=== PATIENT | female | born 1945 | race Caucasian/White ===

== ENCOUNTER 2016-09-29 10:15 | Emergency (ER) | payer OTHER ==
[~2016-09-29] VITALS: Ht 157.5 cm; Wt 36.3 kg
[2016-09-29] MEDS ORDERED: SODIUM CHLORIDE 0.9% 500 ML IV ONE ×3 (11:15→16:45)
[2016-09-29] MEDS ORDERED: methylPREDNISolone SOD SUCC 125 MG/2 ML VL IV ONE (11:15)
[2016-09-29 11:16] LABS: Hematocrit 47.8 % (36.0-46.0); Hemoglobin 15.7 g/dL (12.2-16.2); Mean Corpuscular Hemoglobin 31.6 pg (28.0-32.0); Mean Corpuscular Hgb Conc. 32.9 g/dL (32.0-36.0); Mean Corpuscular Volume 95.9 fL (80.0-100.0); Mean Platelet Volume 8.8 fL (7.4-10.4); Platelet Count (auto) 310 10^3/uL (140-450); Red Cell Distribution Width 13.5 % (11.6-16.0); SUSPECT VIEW TRANSMISSION; White Blood Cell 24.9 10^3/uL (4.4-10.8)
[2016-09-29 11:25] LABS: Metamyelocytes % 0; Myelocytes % 0; Promyelocytes % 0; Reactive Lymphocytes 0
[2016-09-29 11:31] LABS: INR 1.05 (0.9-1.15); Partial Thromboplastin Time 29.8 sec (22.64-33.71); Prothrombin Time 11.4 sec (9.37-12.3)
[2016-09-29 11:36] LABS: Albumin 2.9 g/dL (3.4-5.0); BUN/Creatinine Ratio 47.9; Bilirubin, Total 0.5 mg/dL (0.2-1.0); Calcium 8.9 mg/dL (8.5-10.1); Magnesium 2.4 mg/dL (1.6-2.6); Potassium 4.1 mmol/L (3.5-5.1); Total Protein 6.4 g/dL (6.4-8.2)
[2016-09-29] MEDS ORDERED: PRIM50TA29 PO (11:49)
[2016-09-29] MEDS ORDERED: ASPI325T47 OR (11:49)
[2016-09-29] MEDS ORDERED: LISI2.5T47 PO (11:49)
[2016-09-29] MEDS ORDERED: TIOT17SP IN (11:49)
[2016-09-29] MEDS ORDERED: ALBU1AER4 IN (11:49)
[2016-09-29] MEDS ORDERED: DILT180C88 PO (11:49)
[2016-09-29] MEDS ORDERED: PRED1PAK10 PO (11:49)
[2016-09-29] MEDS ORDERED: FLUT1SPR5 (11:50)
[2016-09-29] MEDS ORDERED: LOR05T PO (11:50)
[2016-09-29] MEDS ORDERED: MIRT30TA OR (11:50)
[2016-09-29] MEDS ORDERED: MED20T PO (11:50)
[2016-09-29] MEDS ORDERED: MOME100A INH (11:51)
[2016-09-29] MEDS ORDERED: MET50T PO (11:51)
[2016-09-29 11:52] LABS: B-Type Natriuretic Peptide 372.22 pg/mL (0-100); Temperature: 23.5 C (20.0-25.0)
[2016-09-29 11:58] LABS: Platelet Estimate Adequate; RBC Morphology Normal
[2016-09-29] MEDS ORDERED: DILTIAZEM HCL 25 MG/5 ML VIAL IV ONE (12:00)
[2016-09-29] MEDS ORDERED: cefTRIAXone 1GM/50ML D5W 50 ML IV ONE (13:45)
[2016-09-29] MEDS ORDERED: ALBUTEROL SULF 2.5 MG/0.5ML(0.5%) NEB SOLN NEB ONE (15:15)
[2016-09-29] MEDS ORDERED: IPRATROPIUM BROM 0.5 MG/2.5ML INH SOL NEB ONE (15:15)
[2016-09-29 18:50] LABS: Lactic Acid w/Reflex 2.3 mmol/L (0.4-2.0)
[2016-09-29 19:27] LABS: REFLEX LACTIC ACID YES OR NO YES
[2016-09-29] MEDS ORDERED: PIPERACILLIN-TAZOB 3.375GM 100 ML IV ONE (19:30)
[2016-09-29] MEDS ORDERED: ADENOSINE 6 MG/2 ML INJ IV ONE (19:30)
[2016-09-29] MEDS ORDERED: DILTIAZEM 125mg/125ml BAG KIT 125 ML IV ONE (21:30)
[2016-09-29] MEDS ORDERED: DIGOXIN (250MCG/ML) 2 ML AMPULE IV ONE (21:30)
[2016-09-30 01:52] VITALS: BP 114/64
== END 2016-09-30 01:48 | disposition short-term general hospital (02) ==
LOC: EDBD 10:15 → ER 10:21
DX: J44.1 Chronic obstructive pulmonary disease with (acute) exacerbation (principal); I47.1 Supraventricular tachycardia; J18.1 Lobar pneumonia, unspecified organism; E11.9 Type 2 diabetes mellitus without complications
CPT/HCPCS: 36415; 71020; 71250; 80053; 83605; 83735; 83880; 84484; 85007; 85027; 85379; 85610; 85730; 87040; 93005; 94640; 94761; 96361; 96365; 96366; 96367; 96375; 99285; J0153; J0696; J1160; J2543; J2930; J7030

== ENCOUNTER 2018-09-29 15:03 | Emergency (ER) | payer OTHER ==
[~2018-09-29] VITALS: Ht 157.5 cm; Wt 45.4 kg
[~2018-09-29 15:03] MED LIST: ALBU1AER4 IN; ASPI-123 OR; DILT180C88 PO; FLUT1SPR5; LISI2.5T47 PO; LORA-654 PO; MED20T PO; MET50T PO; MIRT30TA OR; MOME100A INH; PRED1PAK10 PO; PRIM50TA29 PO; TIOT17SP IN
[2018-09-29] MEDS ORDERED: methylPREDNISolone SOD SUCC 125 MG/2 ML VL IV ONE (15:15)
[2018-09-29] MEDS ORDERED: IPRATROPIUM BROM 0.5 MG/2.5ML INH SOL NEB ONE (15:15)
[2018-09-29] MEDS ORDERED: ALBUTEROL SULF 2.5 MG/0.5ML(0.5%) NEB SOLN NEB ONE (15:15)
[2018-09-29] MEDS ORDERED: ASPirin 81 mg TAB PO ONE (15:15)
[2018-09-29 15:35] LABS: Basophils # (auto) 0.1 uL; Basophils % (auto) 0.8 % (0.0-2.0); Eosinophils # (auto) 0 uL; Eosinophils % (auto) 0.3 % (0.0-7.0); Hemoglobin 15.2 g/dL (12.2-16.2); Lymphocytes # (auto) 0.7 uL; Mean Corpuscular Hgb Conc. 33.1 g/dL (32.0-36.0); Mean Corpuscular Volume 93.6 fL (80.0-100.0); Monocytes # (auto) 0.4 uL; Monocytes % (auto) 5.4 % (0.0-12.0); Neutrophils # (auto) 6.5 uL; Neutrophils % (auto) 84.5 % (37.0-80.0); Platelet Count (auto) 216 10^3/uL (140-450); Red Blood Cells 4.91 10^6/uL (4.0-5.20); Red Cell Distribution Width 14.2 % (11.8-14.3); White Blood Cell 7.7 10^3/uL (4.4-10.8)
[2018-09-29 15:46] LABS: INR 0.99 (0.9-1.15); Partial Thromboplastin Time 26.7 sec (23.64-32.05); Prothrombin Time 10.7 sec (9.06-12.60)
[2018-09-29 16:05] LABS: Alanine Aminotransferase 15 U/L (13-56); Albumin 3.6 g/dL (3.4-5.0); Aspartate Aminotransferase 11 U/L (15-37); BUN/Creatinine Ratio 41.2; Blood Urea Nitrogen 21 mg/dL (7-18); Calcium 9.3 mg/dL (8.5-10.1); Carbon Dioxide 32 mmol/L (21-32); GFR African American 152 mL/min; GFR Non-African American 126 mL/min; Glucose 92 mg/dL (74-106)
[2018-09-29 16:50] LABS: Anion Gap 5 (5-15); Chloride 102 mmol/L (98-107); Potassium 4.5 mmol/L (3.5-5.1); Sodium 139 mmol/L (136-145)
[2018-09-29 16:51] LABS: Alkaline Phosphatase 132 U/L (45-117); Bilirubin, Total 0.3 mg/dL (0.2-1.0); Total Protein 8.1 g/dL (6.4-8.2)
[2018-09-29 19:46] VITALS: BP 123/58
== END 2018-09-29 20:01 | disposition short-term general hospital (02) ==
LOC: EDBD 15:03 → ER 15:08
DX: J44.1 Chronic obstructive pulmonary disease with (acute) exacerbation (principal); I10 Essential (primary) hypertension
CPT/HCPCS: 36415; 71045; 80053; 83880; 84484; 85025; 85610; 85730; 93005; 94640; 96374; 99285; J2930; J7611; J7644

== ENCOUNTER 2019-02-27 08:33 | Inpatient (IN) | payer OTHER ==
[2019-02-27] VITALS (50 sets, daily range): BP systolic 59–151; BP diastolic 38–76
[~2019-02-27] VITALS: Ht 160 cm; Wt 52.1 kg
[~2019-02-27 08:33] MED LIST changes: -LORA-654 PO; +LORA0.5T12 PO
[2019-02-27] MEDS ORDERED: ETOMIDATE (2MG/ML) 20ML VIAL IV ONE (08:37)
[2019-02-27] MEDS ORDERED: MIDAZOLAM DRIP 50 mg/50mL 50 ML IV ONE ×2 (08:38→13:56)
[2019-02-27] MEDS ORDERED: VANCOMYCIN 1GM/250ML 250 ML IV ONE (08:45)
[2019-02-27] MEDS ORDERED: PIPERACILLIN-TAZOB 3.375GM 100 ML IV ONE (08:45)
[2019-02-27] MEDS ORDERED: SODIUM CHLORIDE 0.9% 3,000 ML IV ONE (08:45)
[2019-02-27] MEDS: NOREPINEPHRINE 8 MG/250ML KIT 250 ML IV SCH ×2 (09:15→18:47)
[2019-02-27] MEDS ORDERED: NOREPINEPHRINE 8 MG/250ML KIT 250 ML IV ONE (09:17)
[2019-02-27 09:21] LABS: Basophils # (auto) 0 uL; Eosinophils # (auto) 0 uL; Lymphocytes # (auto) 0.5 uL; Lymphocytes % (auto) 7.3 % (10.0-50.0); Monocytes # (auto) 0.5 uL; Neutrophils # (auto) 5.3 uL; Nucleated Red Blood Cells % 0.3 %; Platelet Count (auto) 126 10^3/uL (140-450); Red Cell Distribution Width 15.5 % (11.8-14.3)
[2019-02-27 09:23] LABS: Basophils % (auto) 0.3 % (0.0-2.0); Hematocrit 21.5 % (36.0-46.0); Mean Corpuscular Hgb Conc. 30.7 g/dL (32.0-36.0); Mean Corpuscular Volume 104.2 fL (80.0-100.0); Monocytes % (auto) 7.6 % (0.0-12.0); Neutrophils % (auto) 84.8 % (37.0-80.0); Red Blood Cells 2.06 10^6/uL (4.0-5.20); White Blood Cell 6.2 10^3/uL (4.4-10.8)
[2019-02-27 09:33] LABS: Hemoglobin 6.6 g/dL (12.2-16.2)
[2019-02-27 09:38] LABS: INR 2.39 (0.9-1.15); Partial Thromboplastin Time 27.7 sec (23.64-32.05)
[2019-02-27 09:39] LABS: Albumin 2.1 g/dL (3.4-5.0); BUN/Creatinine Ratio 21.4; Calcium 6.1 mg/dL (8.5-10.1); Magnesium 1.7 mg/dL (1.6-2.6); Potassium 4.5 mmol/L (3.5-5.1)
[2019-02-27 09:41] LABS: Urine Bacteria NONE SEEN /hpf (None Seen); Urine Blood 1+ /uL (Negative); Urine Mucus FEW (None Seen); Urine Specific Gravity 1.019 (1.001-1.035); Urine WBC 1952 /hpf (0 - 5); Urine WBC Clumps PRESENT /hpf (None Seen)
[2019-02-27 09:44] LABS: Bilirubin, Total 0.3 mg/dL (0.2-1.0); Total Protein 4.4 g/dL (6.4-8.2)
[2019-02-27] MEDS ORDERED: EPINEPHrine HCL 1 MG/10 ML SYRG IV ONE (10:18)
[2019-02-27] MEDS ORDERED: ATROPINE SULF 1 MG/10ml SYR IV ONE (10:18)
[2019-02-27] MEDS ORDERED: SODIUM BICARBONATE 8.4% INJ 50ML SYRINGE IV ONE (10:18)
[2019-02-27] MEDS ORDERED: phytonadione 5 MG in SODIUM CHL 0.9% 50 ML IV ONE (11:00)
[2019-02-27] MEDS ORDERED: ALBUTEROL SULF 2.5 MG/0.5ML(0.5%) NEB SOLN NEB PRN (11:15)
[2019-02-27] MEDS ORDERED: NITROGLYCERIN 0.4 MG SL TAB SL PRN (11:15)
[2019-02-27] MEDS ORDERED: DEXTROSE (50%) 50ML SYRG IV PRN (11:15)
[2019-02-27] MEDS ORDERED: MORPHINE SULF INJ 2 MG/ML SYRINGE 1ML IV PRN (11:15)
[2019-02-27 11:35] LABS: Hematocrit 38.5 % (36.0-46.0); Hemoglobin 11.9 g/dL (12.2-16.2); Mean Corpuscular Hemoglobin 30.9 pg (28.0-32.0); Mean Corpuscular Hgb Conc. 30.9 g/dL (32.0-36.0); Mean Corpuscular Volume 99.8 fL (80.0-100.0); Platelet Count (auto) 191 10^3/uL (140-450); Red Blood Cells 3.85 10^6/uL (4.0-5.20); Red Cell Distribution Width 15.5 % (11.8-14.3); White Blood Cell 22.1 10^3/uL (4.4-10.8)
[2019-02-27 11:46] LABS: Albumin 2.4 g/dL (3.4-5.0); Calcium 7.3 mg/dL (8.5-10.1)
[2019-02-27 11:49] LABS: BUN/Creatinine Ratio 18.8; Bilirubin, Total 0.7 mg/dL (0.2-1.0); INR 1.59 (0.9-1.15); Total Protein 5.3 g/dL (6.4-8.2)
[2019-02-27] MEDS: InsuLIN REG 1unit/0.01ml Soln (100units/ml) SC SCH ×2 (12:00→18:52)
[2019-02-27] MEDS ORDERED: ALBUTEROL SULF 2.5 MG/0.5ML(0.5%) NEB SOLN NEB SCH (12:00)
[2019-02-27 12:26] LABS: Amphetamine Screen, Urine NEGATIVE (NEGATIVE); Barbiturate Scree,Urine NEGATIVE (NEGATIVE); Benzodiazephine Screen, Urine POSITIVE (NEGATIVE); Cannabinoid Screen, Urine NEGATIVE (NEGATIVE); Cocaine Screen, Urine NEGATIVE (NEGATIVE); Opiate Scree,Urine NEGATIVE (NEGATIVE); Phencyclidine Screen, Urine NEGATIVE (NEGATIVE)
[2019-02-27 12:59] LABS: CRP High Sensitivity 4.59 mg/dL (< 0.3)
--- NOTE | 2019-02-27 13:05 | NUR ---
Admit to ICU from ER on vent TARBELL,RUTHadmitted to ICU via gurney on monitoring manager, intubated and being bagged by Respiratory Therapist. Patient transfered to bed, connected to mechanical ventilator by therapist, KESHAV at bedside. Patient connected to ICU monitoring, weighed by molina, oriented to Shona velásquez RN, unit, ventilator and sedation. NOTE: ASSESSMENT COMPLETED -M SEE PHYSICAL ASSESSMENT SPREAD SHEET.
--- NOTE | 2019-02-27 13:20 | NUR ---
STAT PAGED DR ALFORD REGARDING PT'S HR 160'S AND BP OF 73/43.
[2019-02-27 13:24] LABS: Hematocrit 44.9 % (36.0-46.0); Hemoglobin 13.3 g/dL (12.2-16.2); Mean Corpuscular Hemoglobin 30.7 pg (28.0-32.0); Mean Corpuscular Hgb Conc. 29.7 g/dL (32.0-36.0); Mean Corpuscular Volume 103.6 fL (80.0-100.0); Platelet Count (auto) 185 10^3/uL (140-450); Red Blood Cells 4.33 10^6/uL (4.0-5.20); Red Cell Distribution Width 16.4 % (11.8-14.3); White Blood Cell 24.7 10^3/uL (4.4-10.8)
--- NOTE | 2019-02-27 13:25 | NUR ---
SBP 70'S - LEVOPHED INCREASED- SEE IV SPREAD SHEET. HR REMAINS 150-160'S
[2019-02-27 13:28] LABS: Basophils % (manual) 0 (0.0-2.0); Blast Cells 0; Eosinophils % (manual) 0 (0-7); Metamyelocytes % 0; Myelocytes % 0; Promyelocytes % 0; Reactive Lymphocytes 0
[2019-02-27 13:28] LABS: Basophils % (manual) 0 (0.0-2.0); Blast Cells 0; Eosinophils % (manual) 0 (0-7); Metamyelocytes % 0; Myelocytes % 0; Promyelocytes % 0; Reactive Lymphocytes 0
[2019-02-27 13:37] LABS: INR 1.5 (0.9-1.15); Partial Thromboplastin Time 31.2 sec (23.64-32.05)
--- NOTE | 2019-02-27 13:40 | NUR ---
DR ALFORD RETURNS CALL - INFORMED OF PATIENT'S VITALS AND HEART RHYTHM, PRESENTING INFORMATION AND ASSESSMENT - ORDERS RECEIVED. 12 LEAD EKG DONE AND SENT TO DR ALFORD - STATES NO ADDITIONAL ORDERS AT THIS TIME EXCEPT FOR CURRENT IVF.
[2019-02-27 13:44] LABS: Albumin 2.6 g/dL (3.4-5.0); BUN/Creatinine Ratio 21.5; Calcium 8.2 mg/dL (8.5-10.1); Potassium 5.2 mmol/L (3.5-5.1)
[2019-02-27 13:44] LABS: Band Neutrophils % (manual) 10; Lymphocytes % (manual) 9 (10.0-50.0); Monocytes % (manual) 1 (0-12)
[2019-02-27 13:47] LABS: Band Neutrophils % (manual) 11; Lymphocytes % (manual) 7 (10.0-50.0); Monocytes % (manual) 4 (0-12)
[2019-02-27 13:48] LABS: Bilirubin, Total 0.8 mg/dL (0.2-1.0); Total Protein 5.9 g/dL (6.4-8.2)
[2019-02-27] MEDS: IPRATROPIUM BROM 0.5 MG/2.5ML INH SOL NEB SCH ×2 (14:06→18:40)
--- NOTE | 2019-02-27 14:07 | NUR ---
Respiratory note: MED NEB TX HELD DUE TO TACHYCARDIA WITH HR OF 167. RN AWARE.
--- NOTE | 2019-02-27 14:18 | NUR ---
CALLED DR CONDON'S EXCHANGE AND LEFT A MESSAGE REGARDING PT'S PULMONARY CONSULT AND REQUESTED A STAT CALL BACK.
--- NOTE | 2019-02-27 14:40 | NUR ---
Respiratory note: PT PLACED ON PCV PER DR. CONDON WITH A PC OF 30, PEEP OF 0, I-TIME 1 SECOND, AND 40% FIO2. PT NOTED TO BE BREATHING MORE COMFORTABLY WITH LESS BREATH STACKING. ABG TO BE DRAWN IN ONE HOUR. PARK SIMONS IS AWARE.
[2019-02-27] MEDS: SODIUM CHLORIDE 0.9% 1,000 ML IV SCH ×2 (15:37→21:25)
[2019-02-27] MEDS: MIDAZOLAM DRIP 50 mg/50mL 50 ML IV SCH ×2 (15:41→17:40)
--- NOTE | 2019-02-27 16:00 | NUR ---
DR CONDON VISITS - SPEAKS WITH DR ALFORD RE: PATIENT'S TACHYCARDIA - ORDERS RECEIVED.
--- NOTE | 2019-02-27 16:10 | NUR ---
Respiratory note: ABG HAS BEEN REPORTED TO DR. CONDON AND HE THEN ORDERED THE RR TO BE INCREASED TO 18. NEW VENT SETTINGS: PC OF 30, PEEP 0, I-TIME 1, AND 40% FIO2. ABG TO BE DRAWN IN AM. PARK SIMONS IS AWARE.
[2019-02-27] MEDS ORDERED: methylPREDNISolone SOD SUCC 125 MG/2 ML VL ONE (16:27)
[2019-02-27] MEDS ORDERED: LEVOFLOXACIN 250MG 50 ML IV ONE (16:28)
[2019-02-27] MEDS ORDERED: PIPERACILLIN-TAZOB 2.25GM 50 ML IV ONE (16:28)
[2019-02-27] MEDS: ACCU-CHEK COMFORT CURVE STRIP VI SCH ×2 (16:42→18:39)
[2019-02-27] MEDS ORDERED: FUROSEMIDE 20 MG/2 ML VIAL IV ONE (16:45)
[2019-02-27] MEDS ORDERED: PANTOPRAZOLE 40 MG/10 ML VIAL INJ IV ONE (16:45)
[2019-02-27] MEDS ORDERED: LEVOFLOXACIN 250MG 50 ML IV SCH (17:00)
[2019-02-27] MEDS ORDERED: DILTIAZEM HCL 60 MG TAB GT ONE (17:15)
[2019-02-27 18:04] LABS: Hematocrit 39.5 % (36.0-46.0); Hemoglobin 12.3 g/dL (12.2-16.2)
--- NOTE | 2019-02-27 18:15 | NUR ---
DR LA CONTACTED WITH NEW COAG VALUES - ORDER RECEIVED TO CANCEL VITAMIN K INFUSION.
[2019-02-27] MEDS: LEVALBUTEROL HCL 1.25 MG/3 ML NEB NEB SCH (18:40)
--- NOTE | 2019-02-27 19:07 | NUR ---
TROPONIN LEVEL CALLED TO DR ALFORD - ORDER RECEIVED - SERIAL TROPONIN LEVELS STOPPED
[2019-02-27] MEDS ORDERED: DILT60TA28 PO (20:17)
[2019-02-27] MEDS ORDERED: MED20T PO (20:17)
[2019-02-27] MEDS ORDERED: ATOR20TA PO (20:17)
[2019-02-27] MEDS ORDERED: DABI150C5 PO (20:17)
--- NOTE | 2019-02-27 21:00 | NUR ---
SEDATION VACATION NOT PERFORMED IT IS NOT APPROPRIATE AT THIS TIME; WILL CONT. TO MONITOR.
[2019-02-27] MEDS: DILTIAZEM HCL 60 MG TAB PO SCH (21:05)
[2019-02-27] MEDS: methylPREDNISolone SOD SUCC 125 MG/2 ML VL IV SCH (22:51)
[2019-02-27] MEDS ORDERED: IBUPROFEN 100MG/5ML ORAL SUSP 100 MG/5 ML UD GT PRN (23:00)
[2019-02-28] VITALS (103 sets, daily range): BP systolic 85–151; BP diastolic 35–75
[2019-02-28] MEDS: LEVALBUTEROL HCL 1.25 MG/3 ML NEB NEB SCH ×4 (00:39→18:35)
[2019-02-28] MEDS: IPRATROPIUM BROM 0.5 MG/2.5ML INH SOL NEB SCH ×4 (00:40→18:35)
[2019-02-28] MEDS: ACCU-CHEK COMFORT CURVE STRIP VI SCH ×4 (00:50→18:10)
[2019-02-28] MEDS: PIPERACILLIN-TAZOB 2.25GM 50 ML IV SCH ×4 (00:50→18:27)
[2019-02-28] MEDS: InsuLIN REG 1unit/0.01ml Soln (100units/ml) SC SCH ×4 (00:51→18:00)
[2019-02-28 01:10] LABS: Hematocrit 37.4 % (36.0-46.0); Hemoglobin 11.9 g/dL (12.2-16.2)
[2019-02-28 01:31] LABS: Calcium 6.7 mg/dL (8.5-10.1); Magnesium 1.6 mg/dL (1.6-2.6); Potassium 3.7 mmol/L (3.5-5.1)
[2019-02-28] MEDS ORDERED: MAGNESIUM SULFATE 1GM/100ML 100 ML IV ONE (03:45)
[2019-02-28] MEDS: DILTIAZEM HCL 60 MG TAB PO SCH ×4 (06:50→22:18)
[2019-02-28] MEDS: methylPREDNISolone SOD SUCC 125 MG/2 ML VL IV SCH ×3 (06:50→21:53)
[2019-02-28 07:39] LABS: Basophils # (auto) 0 uL; Eosinophils # (auto) 0 uL; Hematocrit 38.4 % (36.0-46.0); Hemoglobin 12.1 g/dL (12.2-16.2); Lymphocytes # (auto) 0.4 uL; Lymphocytes % (auto) 2.7 % (10.0-50.0); Mean Corpuscular Hemoglobin 30.9 pg (28.0-32.0); Mean Corpuscular Hgb Conc. 31.5 g/dL (32.0-36.0); Mean Corpuscular Volume 98.1 fL (80.0-100.0); Monocytes # (auto) 0.3 uL; Neutrophils # (auto) 15.7 uL; Neutrophils % (auto) 95.3 % (37.0-80.0); Nucleated Red Blood Cells % 0.1 %; Platelet Count (auto) 144 10^3/uL (140-450); Red Blood Cells 3.91 10^6/uL (4.0-5.20); Red Cell Distribution Width 16.1 % (11.8-14.3); White Blood Cell 16.5 10^3/uL (4.4-10.8)
[2019-02-28 07:55] LABS: Albumin 2.5 g/dL (3.4-5.0); BUN/Creatinine Ratio 30.9; Calcium 6.9 mg/dL (8.5-10.1); Potassium 3.7 mmol/L (3.5-5.1)
[2019-02-28 08:03] LABS: Bilirubin, Total 0.5 mg/dL (0.2-1.0); Total Protein 5.4 g/dL (6.4-8.2)
[2019-02-28] MEDS: MIDAZOLAM DRIP 50 mg/50mL 50 ML IV SCH ×3 (08:41→22:32)
--- NOTE | 2019-02-28 08:44 | NUR ---
DR GAO CALLED TO NOTIFY INFORMATION ASSISTANT OF NEW LEFT SIDED PNEUMOTHORAX NOTED ON THIS AM CXR - CALL PLACED TO DR CONDON. RT NOTIFIED.
--- NOTE | 2019-02-28 08:51 | NUR ---
MICROBIOLOGY NOTIFIED LABORER FILTER PLANT OF 2 GRAM POSITIVE BLOOD CULTURES IN CLUSTERS - CALL PLACED TO DR LA.
[2019-02-28] MEDS ORDERED: cefTRIAXone 1GM/50ML D5W 50 ML IV SCH (09:00)
--- NOTE | 2019-02-28 09:00 | NUR ---
SEDATION DECREASED DUE TO VERY HYPOACTIVE COUGH/GAG REFLEX, SLUGGISH PUPIL RESPONSE AND DECREASED WITHDRAWAL TO PAINFUL STIMULI. Addendum: 02/28/19 at 0907 by Shona Juarez RN Amended: Links added.
--- NOTE | 2019-02-28 09:11 | NUR ---
DR CONDON RETURNS CALL - INFORMED OF NEW MOD PNEUMOTHORAX - CALL PLACED TO DR POWER ARMOR RECONNAISSANCE SPECIALIST FOR DR SANABRIA FOR CHEST TUBE PLACEMENT. ALSO INFORMED OF BLOOD CULTURE REPORTS - ORDERS RECEIVED.
[2019-02-28] MEDS ORDERED: VANCOMYCIN PER PHARMACY 0 MG IV SCH (09:15)
--- NOTE | 2019-02-28 09:24 | NUR ---
Respiratory note: CALL PLACED TO TO REPORT CRITICAL ABG RESULTS. VENT CHANGE, RR FROM 18 TO 22, REPEAT ABG TO FOLLOW.
--- NOTE | 2019-02-28 09:25 | NUR ---
DR ALFORD VISITS AND EXAMINES PATIENT - ORDERS RECEIVED.
--- NOTE | 2019-02-28 09:40 | NUR ---
RIGHT THORAVENT CONNECTED TO 20 CM SUCTION - LARGE AIR LEAK NOTED - SAO2 INCREASED TO 98% - RT NOTIFIED - WILL RE-CHECK ABG AND CXR AFTER VENT CHANGES MADE PER DR CONDON'S ORDERS.
[2019-02-28] MEDS ORDERED: FAMOTIDINE (10MG/ML) 2ML VL IV SCH (10:00)
[2019-02-28] MEDS: VANCOMYCIN 750mg/250ml 250 ML IV SCH (10:08)
[2019-02-28] MEDS: PANTOPRAZOLE 40 MG/10 ML VIAL INJ IV SCH (10:08)
[2019-02-28] MEDS ORDERED: DILTIAZEM HCL 60 MG TAB PO SCH (10:15)
--- NOTE | 2019-02-28 10:31 | NUR ---
ANOTHER CALL PLACED TO DR LA.
--- NOTE | 2019-02-28 11:00 | NUR ---
DR LA RETURNS CALL - STATES DR DONAHUE IS PRIMARY HOSPITALIST FOR PATIENT TODAY.
[2019-02-28] MEDS: SODIUM CHLORIDE 0.9% 1,000 ML IV SCH ×3 (11:10→21:53)
--- NOTE | 2019-02-28 14:10 | NUR ---
DR DONAHUE VISITS AND EXAMINES PATIENT, UPDATES FAMILY AT BEDSIDE - ORDERS RECEIVED. DR DONAHUE PHONED DR Dee POWER RE: CHEST TUBE PLACEMENT - STATES WILL COME AND PLACE LEFT CHEST TUBE - ORDERS RECEIVED FOR CXR AT 1530 AND COAGS TO BE DRAWN.
--- NOTE | 2019-02-28 14:30 | NUR ---
DR CONDON VISITS AND EXAMINES PATIENT - ORDERS RECEIVED.
--- NOTE | 2019-02-28 15:03 | NUR ---
CONSULT TO DR GOODRICH CALLED TO IT PROGRAM AUDITOR PER PROTOCOL.
[2019-02-28 15:11] LABS: INR 1.23 (0.9-1.15); Partial Thromboplastin Time 23.9 sec (23.64-32.05)
--- NOTE | 2019-02-28 17:00 | NUR ---
CONTINUE TO AWAIT DR POWER TO PLACE CHEST TUBES.
--- NOTE | 2019-02-28 18:35 | NUR ---
Respiratory note: RECEIVED PT ON VENT V2, VENT CONNECTED TO RED OUTLET AND O2 SOURCE. ALARMS ARE SET AND AUDIBLE. AMBU BAG AND MASK AT BEDSIDE. BS ARE DIMINISHED T/O, NO SX DONE AT THIS TIME, MED NEB TX GIVEN INLINE WITHOUT ADVERSE REACTION NOTED. RT NAME AND PAGER ASSIGNMENT WRITTEN ON PTS ROOM BOARD. PTS FAMILY AT BEDSIDE. PTS CURRENT TEMP IS 99.7F.
--- NOTE | 2019-02-28 18:42 | NUR ---
Respiratory note: PTS DAUGHTER AT BEDSIDE COMMUNICATED SHE IS WAITING ON MD FOR CHEST TUBES, PTS DAUGHTER WOULD LIKE TO BE ASSURED THAT THE PATIENT WILL BE PROPERLY SEDATED AND NUMB. DAUGHTER, IS CONCERNED PT HAS SUFFERED ENOUGH AND DOES NOT WANT HER TO FEEL MORE PAIN THAN NECESSARY.
--- NOTE | 2019-02-28 18:45 | NUR ---
ARTERIAL VASCULAR STUDIES COMPLETED.
[2019-02-28] MEDS: NOREPINEPHRINE 8 MG/250ML KIT 250 ML IV SCH (19:04)
--- NOTE | 2019-02-28 19:30 | NUR ---
Opening Shift Note Assumed care of patient, intubated and sedated, arousal with light to deep pain, pupils brisk and equal. Breathing even and nonlabored, synchronized to ventilator, No S/S of distress/SOB or pain. TLC to right IJ, Tegaderm slightly peeling off, will change d/s later, infusing Versed, Levophed and NS. 20G saline lock to right AC, flushed well. NGT to left nare, belkys 61 cms, connected to LCS, dark greenish bile in the tubing. All extremities cool to touch. Radial pulses normal. Unable to palpate both pedal pulses, both feet were cool, normal pink skin color, will check with Doppler u/s, keep both feet warm. Root's catheter hung to gravity with cloudy and sediments yellowish urine. Bed in low position, call light within reach, fall ans safety precautions in place. No family at bedside at this time, will continue to monitor for changes Q1hr and PRN.
--- NOTE | 2019-02-28 20:13 | NUR ---
Respiratory note: AT BEDSIDE FOR ROUTINE VENT CHECK. NO VENT CHANGES MADE AT THIS TIME CURRENT TEMP IS 100.0F. PARK MCDONALD AT BEDSIDE.
--- NOTE | 2019-02-28 21:00 | NUR ---
Family at bedside. Pt's DTR; Lillian at bedside. Pt's condition and POC updated as well as the plan to place chest drain. Explained to family about procedure and sedation, DTR verbalized understanding and signed the consent for the procedure. All questions and concerns addressed.
--- NOTE | 2019-02-28 21:20 | NUR ---
BLE pulses BLE pulses checked with Doppler u/s with difficulty finding extremities pulses. Both pedal pulses and right posterior Tibial were very weak and irregular, comes and goes, with Doppler u/s, all pulse spots marked. Unable to find left posterior Tibial pulses. Both feet cool to touch, continue keeping warm. Popliteal and femoral pulses weak. 20mins time spent at bedside for finding.
--- NOTE | 2019-02-28 22:10 | NUR ---
Respiratory note: AT BEDSIDE FOR ROUTINE VENT CHECK. TITRATED FIO2 TO 35% VIA VENT AT THIS TIME. PTS CURRENT TEMP IS 99.1F. PARK MCDONALD AT BEDSIDE AND AWARE OF O2 CHANGE.
--- NOTE | 2019-02-28 22:20 | NUR ---
Condition update Increased HR from 120 to 130's and SBP 150's, decreased Levophed slowly, see IV spreadsheet, administered Cardizem as MD order. NGT clamped due to medication given, will re-connect to LCS later. Chest drains in place, noted air leak level 1 on left side almost continuously. Continue care.
--- NOTE | 2019-02-28 23:30 | NUR ---
Condition update/ TLC d/s changed Pt's v/s and condition stable, able to taper down Levophed slowly, see IV spreadsheet and v/s sheet for details. Versed infusing at same rate 11mg/hr. Breathing even and nonlabored, POX high 90's %. Heimlich valves x2 in place, air leak level 1 noted almost all the time on left chest drain. Right chest drain intact, noted same subcutaneous emphysema. Pt grimacing with activities, able to move arms slightly/ weakly. TLC d/s peeled off, d/s changed with sterile technique, noted one stitch intact and one stitch loosen off, bio patch put on the site. Mouth care done. Re-position to prevent pressure ulcer. Continue care.
[2019-03-01] VITALS (91 sets, daily range): BP systolic 82–146; BP diastolic 35–70
[2019-03-01] MEDS: ACCU-CHEK COMFORT CURVE STRIP VI SCH ×4 (00:25→18:00)
[2019-03-01] MEDS: MIDAZOLAM DRIP 50 mg/50mL 50 ML IV SCH ×4 (00:25→17:42)
[2019-03-01] MEDS: PIPERACILLIN-TAZOB 2.25GM 50 ML IV SCH ×4 (00:25→18:15)
[2019-03-01] MEDS: LEVALBUTEROL HCL 1.25 MG/3 ML NEB NEB SCH ×4 (00:45→18:45)
[2019-03-01] MEDS: IPRATROPIUM BROM 0.5 MG/2.5ML INH SOL NEB SCH ×4 (00:45→18:45)
--- NOTE | 2019-03-01 00:45 | NUR ---
Respiratory note: AT BEDSIDE FOR ROUTINE VENT CHECK. TITRATED FIO2 TO 30% VIA VENT AT THIS TIME. CURRENT TEMP IS 99.3F. PARK MCDONALD MADE AWARE OF O2 CHANGE.
[2019-03-01] MEDS: MORPHINE SULFATE 4 MG/ML SYR/VIAL IV PRN (02:07)
--- NOTE | 2019-03-01 02:15 | NUR ---
Condition update BP stable, attempted taper off Levophed, will continue monitor. Pt grimacing and shivering, seemed uncomfortable, temp 98.6 rectally, administered Morphine IV as MD order, keep warm with warm blanket. Feet warmer than earlier, pedal pulses weakly positive with palpation, continue keeping warm at extremities. Respiratory and chest drains stable, air leak level 1. Continue care.
--- NOTE | 2019-03-01 02:24 | NUR ---
Respiratory note: AT BEDSIDE FOR ROUTINE VENT CHECK. HME AND SX CATHETER CHANGED AT THIS TIME. CURRENT TEMP IS 99.0F. NO OTHER CHANGES MADE WILL CONTINUE TO MONITOR.
--- NOTE | 2019-03-01 04:05 | NUR ---
Patient bathe/linen change Patient given complete bath with CHG wipes. Skin integrity assessed for any changes, no new changes, Optifoam intact at sacrum, no open skin. BLE swollen +1. Root's catheter care done. Young rectal cleaned. Z-guard applied to young rectal, and groin areas. Complete linens changed. Patient repositioned for comfort and prevent pressure ulcer. Tolerated fairly due to desaturation to 77% while laying flat and changing linens. Chest drains in place. Continue care.
[2019-03-01 04:24] LABS: Basophils # (auto) 0 uL; Eosinophils # (auto) 0 uL; Hematocrit 32.6 % (36.0-46.0); Hemoglobin 10.7 g/dL (12.2-16.2); Lymphocytes # (auto) 0.2 uL; Lymphocytes % (auto) 1.8 % (10.0-50.0); Mean Corpuscular Hemoglobin 31.3 pg (28.0-32.0); Mean Corpuscular Hgb Conc. 32.9 g/dL (32.0-36.0); Mean Corpuscular Volume 95.1 fL (80.0-100.0); Monocytes # (auto) 0.4 uL; Monocytes % (auto) 3.4 % (0.0-12.0); Neutrophils # (auto) 12.3 uL; Neutrophils % (auto) 94.8 % (37.0-80.0); Nucleated Red Blood Cells % 0.1 %; Platelet Count (auto) 107 10^3/uL (140-450); Red Blood Cells 3.43 10^6/uL (4.0-5.20); Red Cell Distribution Width 15.4 % (11.8-14.3)
[2019-03-01 04:46] LABS: Albumin 2.2 g/dL (3.4-5.0); BUN/Creatinine Ratio 40.4
[2019-03-01 04:48] LABS: Bilirubin, Total 0.5 mg/dL (0.2-1.0); Total Protein 4.6 g/dL (6.4-8.2)
[2019-03-01] MEDS: methylPREDNISolone SOD SUCC 125 MG/2 ML VL IV SCH ×3 (05:41→21:42)
--- NOTE | 2019-03-01 05:52 | NUR ---
Respiratory note: PATIENT FOUND ON .7sec I-TIME; NO ORDER CAN BE FOUND TO SUPPORT THIS SETTING. LAST ORDERED I-TIME IS 1sec PER DR. CONDON. PATIENT RETURNED TO 1sec I-TIME, AT THIS TIME, AND IS TOLERATING SETTING WELL.
[2019-03-01] MEDS: InsuLIN REG 1unit/0.01ml Soln (100units/ml) SC SCH ×4 (06:00→18:00)
--- NOTE | 2019-03-01 06:10 | NUR ---
Respiratory note: RECEIVED PATIENT ON V2 V200 VENT ORALLY INTUBATED WITH AN 8.0 ETT SECURED VIA NINA AT THE 24CM MARKING AT THE LIP, AND MECHANICALLY VENTILATED WITH THE ABOVE CHARTED SETTINGS. SPO2 95%, LUNG SOUNDS ARE DIMINISHED IN ALL LUNG CISNEROS, SCANT AMOUNT OF THIN LIGHT YELLOW SECRETIONS WHEN SUCTIONED. SKIN IS COOL/DRY TO THE TOUCH AND IS INTACT NEAR NINA SITE. THERE IS A NGT IN THE LEFT NARE AND SECURED TO THE NOSE, A TRIPLE LUMEN CENTRAL LINE IS PLACED IN THE RIGHT IJ AND IS PATENT. THERE IS A LARGE AMOUNT OF PALPABLE CREPITUS ON THE RIGHT UPPER CHEST. TWO UreSil THORA-VENTS ARE IN PLACE, ONE LEFT MID-SUBCLAVIAN, AND ONE RIGHT MID-SUBCLAVIAN. THE LEFT HAS CHEST TUBE CONNECTED. THERE IS NON PITTING EDEMA NOTED IN BILATERAL UPPER EXTREMITIES, AND +1 PITTING EDEMA IN THE LOWER EXTREMITIES. AM CXR ASSESSED AND IT SHOWS ETT IN IN SATISFACTORY POSITION SITTING APPROX 3.8CM ABOVE THE AYANNA, NO INDICATION TO ADJUST TUBE AT THIS TIME. PATIENT IS UNRESPONSIVE TO BOTH VERBAL/TACTILE STIMULI AND IS SEDATED ON A VERSED DRIP. SHE IS RESTING COMFORTABLY AND TOLERATING VENT WELL, NO CHANGES MADE. VENT PLUGGED INTO RED OUTLET AND ALL ALARMS ARE SET AND AUDIBLE. WILL CONTINUE TO ASSESS PATIENT WELL VENTILATOR FUNCTION. [employer] RUN INLINE.
[2019-03-01] MEDS: DILTIAZEM HCL 60 MG TAB PO SCH (06:40)
[2019-03-01] MEDS: SODIUM CHLORIDE 0.9% 1,000 ML IV SCH (06:40)
--- NOTE | 2019-03-01 07:15 | NUR ---
OPENING NOTE SHIFT REPORT RECEIVED AND ASSUMED CARE OF PT FROM TAMARA NICK
--- NOTE | 2019-03-01 07:30 | NUR ---
DR. ALFORD AT BEDSIDE ORDERS RECEIVED
--- NOTE | 2019-03-01 07:40 | NUR ---
DR. DONAHUE AT BEDSIDE ORDERS RECEIVED
--- NOTE | 2019-03-01 08:00 | NUR ---
COOLING MEASURES INITIATED FOR TEMP
[2019-03-01] MEDS ORDERED: FUROSEMIDE 20 MG/2 ML VIAL ONE (08:42)
[2019-03-01] MEDS ORDERED: METOPROLOL TARTRATE 1MG/1ML-5ML VIAL IV ONE (08:43)
[2019-03-01] MEDS: FUROSEMIDE 20 MG/2 ML VIAL IV SCH ×2 (09:12→18:10)
[2019-03-01] MEDS: POTASSIUM CHL 20MEQ/100ML 100 ML IV SCH ×2 (09:25→11:02)
[2019-03-01] MEDS ORDERED: METOPROLOL TARTRATE 1MG/1ML-5ML VIAL IV SCH ×2 (10:00→16:00)
--- NOTE | 2019-03-01 10:00 | NUR ---
CHEST TUBE PLACED TO RIGHT CHEST BY DR. HASSAN AT BEDSIDE. PT TOLERATED WELL. WILL CONTINUE TO MONITOR
--- NOTE | 2019-03-01 10:15 | NUR ---
Respiratory note: VENT MODE CHANGED TO AC-VCV WITH THE FOLLOWING SETTINGS, PER DR. PARSONS'S BEDSIDE VERBAL ORDER: AC14, 470, +8 RN JATINDER AT BEDSIDE AND AWARE OF CHANGE.
[2019-03-01] MEDS: PANTOPRAZOLE 40 MG/10 ML VIAL INJ IV SCH (10:32)
[2019-03-01] MEDS: VANCOMYCIN 750mg/250ml 250 ML IV SCH (10:33)
[2019-03-01] MEDS: fentaNYL Drip 2500mCg/250mlNS 250 ML IV SCH (11:02)
--- NOTE | 2019-03-01 11:09 | NUR ---
NUTRITION CONSULT/ASSESSMENT NOTES Please refer to link notes of nutrition screen form filed under the intervention section of the plan of care for further details. Est. Needs: 1700 kcal to 1950 kcal (25-30 kcal/kgBW), 56 gms to 73 gms pro (1.0-1.3 gms/kgBW d/t severe hypoalbuminemia). Will continue to monitor pertinent labs and reassess nutrient need prn Thank you for this consult. Addendum: 03/01/19 at [address] Amended: Links added.
--- NOTE | 2019-03-01 11:15 | NUR ---
[facility] C[facility] PHYSICAL THERAPIST CALLED UPDATED ON PT STATUS. STATES WILL CALL BACK TOMORROW
--- NOTE | 2019-03-01 12:12 | NUR ---
1145 03/01/19 Contacted government relations analyst Josesito at [place] and requested authorization to be provided for patient's continued stay. Per Josesito the assigned family caseworker Kayleen has to review today's clinical information (per Josesito they did receive faxed clinical information today) with the MD before she can give authorization. I faxed Dr. Jose Alejandro Adler's MD progress notes from today 03/01 stating patient is not stable for transfer. I requested that Josesito have Health Safety Instructor Kayleen call me regarding authorization status.
[2019-03-01] MEDS ORDERED: AMIODARONE HCL 150 MG in D5W 5% 100 ML IV ONE (12:30)
[2019-03-01] MEDS ORDERED: DIGOXIN (250MCG/ML) 2 ML AMPULE IV ONE (12:30)
[2019-03-01] MEDS ORDERED: AMIODARONE HCL (50 MG/ ML) 3 ML VIAL IV ONE (12:33)
[2019-03-01] MEDS ORDERED: DIGOXIN (250MCG/ML) 2 ML AMPULE ONE (12:33)
--- NOTE | 2019-03-01 13:00 | NUR ---
DR. HASSAN AT BEDSIDE AWARE OF AIR LEAKAGE. STATES OK WITH MINIMAL LEAKAGE. WILL REPOSITION AND RE-ENFORCE DRESSING
--- NOTE | 2019-03-01 14:00 | NUR ---
DR. GR AT [facility] STATES WILL RE-CHECK LABS IN AM. NO OTHER PLANS AT THIS TIME
--- NOTE | 2019-03-01 14:51 | NUR ---
Assessment Pt is a 74 yr old female who is intubated. Pt's daughter Katerine was bedside and is pt's POA and emergency contact at [phone]. Prior to admit, pt lives at home with , granddaughter and her , and their kids. Pt was found unresponsive in her bed, and has a history with COPD and Sepsis so family member. Pt's granddaughter Natalie is the pt's caregiver in the home. Prior to admit, pt was non-ambulatory and uses a w/c, shower chair, and commode. A paid caregiver comes in weekly to do exercises and bathing with pt. Pt receives SS and pension income. Pt's daughter stated that pt might need a hospital bed and HH services upon d/c. Further d/c needs will be further assessed upon d/c. Addendum: 03/01/19 at 1502 by DAVON DELANEY Amended: Links added.
--- NOTE | 2019-03-01 15:45 | NUR ---
WOUND CARE NOTE: Wound care consult received from nursing for intubation and low ajay score. Patient is an 74 yo female admitted for acute respiratory failure and bilateral pneumothorax, severe anemia, non stemi, UTI and coagulopathy. Patient with a history of COPD, HTN, CVA, diabetes, atherosclerotic vascular disease, and right hip surgery. Patient seen with bedside RNKaterine. Patient is currently intubated and sedated. Last Ajay score is 12. Patient currently with bilateral chest tubes. Turned and assessed skin with assistance of PARK Garcias. No wounds noted to sacrum. Bilateral heels red, blanching and intact and off loaded with pillows. RECOMMENDATIONS: Dietary consult; Turn q2hrs; Nursing to cleanse buttocks with mild soap and water, pat dry, apply ZGUARD BID/PRN and cover with OPTIFOAM GENTLE; wound care team to follow while intubated and Ajay is <18.
[2019-03-01] MEDS ORDERED: Jevity 1.2 Cal/Fiber 1 Liter GT SCH (17:00)
--- NOTE | 2019-03-01 19:25 | NUR ---
CLOSING NOTE SHIFT REPORT GIVEN AND CARE ENDORSED TO SANYA NICK
--- NOTE | 2019-03-01 19:30 | NUR ---
Opening Shift Note Received pt on mechanical ventilator, sedated on versed and fentanyl. Pt has facial grimacing to oral care. Sinus tachycardia 110 on bed side monitor. Full assessment done, see interventions. Chest tube in right lateral side with air leak noted in atrium draining minimal serosanguineous fluid. Per report, MD aware. Heimlich valve in place to left upper chest draining serosanguineous fluid. All pulses palpated. Weak to lower extremities but palpable. Skin assessment done, see interventions. Right IJ TLC in place, all ports patent, with good blood return. Site benign. Root catheter draining to gravity, free of kinks and patent. Bed locked in lowest position, all alarms on and audible. Pt in full view of RN. No indications of pain observed.
--- NOTE | 2019-03-01 20:30 | NUR ---
Family at bedside visiting patient. All questions and concerns addressed at this time.
--- NOTE | 2019-03-01 21:00 | NUR ---
Tube feeding started at 15 cc's/hr. Positive NGT placement checked via air auscultation and aspiration. Will recheck residuals.
[2019-03-01] MEDS: METOPROLOL TARTRATE 1MG/1ML-5ML VIAL IV SCH (21:42)
[2019-03-02] VITALS (98 sets, daily range): BP systolic 67–196; BP diastolic 31–86
--- NOTE | 2019-03-02 | NUR ---
TF held at this time due to high residuals greater than 50cc's.
[2019-03-02] MEDS: PIPERACILLIN-TAZOB 2.25GM 50 ML IV SCH ×2 (00:23→05:32)
[2019-03-02] MEDS: ACCU-CHEK COMFORT CURVE STRIP VI SCH ×4 (00:24→18:00)
[2019-03-02] MEDS: LEVALBUTEROL HCL 1.25 MG/3 ML NEB NEB SCH ×4 (00:29→18:46)
[2019-03-02] MEDS: IPRATROPIUM BROM 0.5 MG/2.5ML INH SOL NEB SCH ×4 (00:29→18:46)
[2019-03-02 04:01] LABS: Albumin 2.3 g/dL (3.4-5.0); Calcium 7.4 mg/dL (8.5-10.1)
[2019-03-02 04:05] LABS: Basophils # (auto) 0 uL; Bilirubin, Total 0.9 mg/dL (0.2-1.0); Eosinophils # (auto) 0 uL; Hematocrit 33.3 % (36.0-46.0); Lymphocytes # (auto) 0.1 uL; Lymphocytes % (auto) 1.1 % (10.0-50.0); Mean Corpuscular Hemoglobin 31.3 pg (28.0-32.0); Mean Corpuscular Volume 94.9 fL (80.0-100.0); Monocytes # (auto) 0.6 uL; Monocytes % (auto) 4.5 % (0.0-12.0); Neutrophils # (auto) 12.7 uL; Neutrophils % (auto) 94.4 % (37.0-80.0); Nucleated Red Blood Cells % 0.1 %; Platelet Count (auto) 104 10^3/uL (140-450); Red Blood Cells 3.51 10^6/uL (4.0-5.20); Red Cell Distribution Width 15.5 % (11.8-14.3); White Blood Cell 13.5 10^3/uL (4.4-10.8)
[2019-03-02 04:33] LABS: Potassium 2.5 mmol/L (3.5-5.1)
--- NOTE | 2019-03-02 04:40 | NUR ---
Paged hospitalist for critical lab value. Awaiting return call.
--- NOTE | 2019-03-02 05:02 | NUR ---
New orders received from hospitalist for 40 meq potassium IV for potassium level of 2.5. Will carry out through emar.
[2019-03-02] MEDS: methylPREDNISolone SOD SUCC 125 MG/2 ML VL IV SCH ×3 (05:32→22:19)
[2019-03-02] MEDS: InsuLIN REG 1unit/0.01ml Soln (100units/ml) SC SCH ×4 (05:40→18:00)
[2019-03-02] MEDS: POTASSIUM CHL 20MEQ/100ML 100 ML IV SCH ×3 (05:41→21:23)
[2019-03-02] MEDS: METOPROLOL TARTRATE 1MG/1ML-5ML VIAL IV SCH ×4 (06:00→18:00)
[2019-03-02] MEDS: FUROSEMIDE 20 MG/2 ML VIAL IV SCH ×2 (06:00→20:34)
--- NOTE | 2019-03-02 06:30 | NUR ---
Partial linen change, CHG wipe bath given and skin integrity assessed for any changes. Pt tolerated well. Crepitus still palpated in upper chest and down right side of arm. Air leak seen in chest tubes. Will inform .
--- NOTE | 2019-03-02 07:25 | NUR ---
End of shift note Report given to Diann NICK to assume care.
--- NOTE | 2019-03-02 07:30 | NUR ---
REPORT RECEIVED FROM NIGHT RNSANYA. BEDSIDE CHECK DONE. SBP 60'S AND SO TURNED OFF VERSED AND FENTANYL FROM 100 TO 50. CONTINUE TO MONITOR.
--- NOTE | 2019-03-02 07:58 | NUR ---
ASSESSMENT PT LAYING IN BED , SEDATED WHILE ON THE VENTILATOR. NO SPONTANEOUS MOVEMENT NOTED. VENT SETTINGS: 8 FR ETT/24 AT THE LIP, TV 470, AC 14, 30% AND PEEP OF 5. LUNGS CLEAR AND DIMINISHED THROUGHOUT. O2 SAT OF 98%. TELE ST 127. SCDS TO BLE. ABD SOFT WITH NO BOWEL SOUNDS NOTED. NGT TO LEFT NARES WITH FEEDING OFF AND RESIDUAL OF 40 ML BILE FLUID NOTED. UNKNOWN LAST BM. KING CATHETER DRAINING PALE CLEAR YELLOW URINE. PT TURNED TO HER RIGHT SIDE. OPTIFOAM TO SACRUM WITH SMALL SCRATCH NOTED TO RIGHT BUTTOCK. PT WITH CHEST TUBE ON THE RIGHT CHEST, TO PLEURAVAC AND TO 20 CM SUCTION, DRAINING SEROSANGUINOUS FLUID. LEFT CHEST HEIMLICH VALVE IN PLACE WITH PLEURAVAC IN PLACE TO 20 CM SUCTION, DRAINING SEROSANGUINOUS FLUID. AIR LEAK NOTED ON BOTH CHEST TUBES AND PER REPORT, MD AWARE. CREPITUS NOTED TO RIGHT LAND LEFT UPPER CHEST TO NECK AND ON UPPER RIGHT ARM. RAILS UP X4 AND BED IN LOW POSITION FOR PT SAFETY AND CONTINUE TO MONITOR.
--- NOTE | 2019-03-02 09:00 | NUR ---
HOLD ING ON SEDATION VACATION OAS PT'S HR AND BP VERY UNSTABLE Addendum: 03/02/19 at 2002 by Diann Johnson RN Amended: Links added.
--- NOTE | 2019-03-02 09:05 | NUR ---
NO BP READING ON BOTH ARMS. TURNED FENTANYL OFF AND LEVOPHED FROM 10 TO 15.
--- NOTE | 2019-03-02 09:09 | NUR ---
Respiratory note: LM FOR DR PARSONS TO RETURN CALL FOR CRITICAL ABG VALUES. RN MADE AWARE.
[2019-03-02] MEDS: PHENYLEPHRINE INJ 20 MG in D5W 5% 250 ML IV SCH ×2 (09:15→17:35)
[2019-03-02] MEDS ORDERED: PHENYLEPHRINE IV 250 ML IV ONE (09:17)
--- NOTE | 2019-03-02 09:26 | NUR ---
OBTAINED ORDER FOR NEOSYNEPHRINE FROM DR Jose Alejandro DONAHUE, IN CASE ELEVATED HR RELATED TO HIGHER DOSE OF LEVOPHED. BP X4 SINCE 911, SBP IS 180-200 . TITRATING DOWN ON LEVOPHED. BP OF 181/72 AND LEVOPHED DOWN FROM 13 TO 10. VS: 127-14-100% AND 181/72. CONTINUE TO MONITOR.
--- NOTE | 2019-03-02 09:40 | NUR ---
VS: 125-14-99% AND 175/70. DECREASED LEVOPHED FROM 10 TO 8 MCG AND CONTINUE TO MONITOR.
[2019-03-02] MEDS: PANTOPRAZOLE 40 MG/10 ML VIAL INJ IV SCH (09:50)
[2019-03-02] MEDS: VANCOMYCIN 750mg/250ml 250 ML IV SCH (09:50)
--- NOTE | 2019-03-02 09:56 | NUR ---
0945 03/02/19 Contacted marketing campaign analyst Erika at [facility] and requested authorization to be provided for patient's continued stay. Per Erika the assigned case finishing machine adjuster today is Kandice-she will have to review clinical information before she can provide further authorization. I made Erika aware that patient is not stable for transfer to [facility] today per attending physician Dr. Jose Alejandro Adler-faxed progress notes for 03/02 to [facility] at [phone]. I requested that Erika have Axminster Weaver Kandice call me regarding further authorization.
--- NOTE | 2019-03-02 10:35 | NUR ---
VS: 116-14-98%AND 180/86. TURNED LEVOPHED FROM 9 TO 8 MCG. CONTINUE TO MONITOR.
--- NOTE | 2019-03-02 10:40 | NUR ---
Respiratory note: DR JOHN GAVE ORDER OVER TELEPHONE TO DECREASE PT RESPIRATORY RATE FROM 14, TO 10. CHANGES WERE MADE. AT 10:45 PT VT STARTED TO DECREASE TO 180. PARK COLINDRES NOTIFIED ME OF PT DECREASE IN VT. RR WAS INCREASED BACK TO 14. PARK COLINDRES LM FOR DR JOHN INFORMING HIM OF PT STATUS, AND THAT THE RR WAS INCREASE BACK TO 14 DUE TO LOW VT.
--- NOTE | 2019-03-02 11:46 | NUR ---
TITRATING DOWN SLOWLY ON THE LEVOPHED PT VERY SENSITIVE. CONTINUE TO MONITOR.
[2019-03-02] MEDS: fentaNYL Drip 2500mCg/250mlNS 250 ML IV SCH (12:12)
[2019-03-02] MEDS: NOREPINEPHRINE 8 MG/250ML KIT 250 ML IV SCH (12:12)
[2019-03-02] MEDS: PIPERACILLIN-TAZOB 3.375GM 100 ML IV SCH ×2 (12:13→20:34)
--- NOTE | 2019-03-02 13:04 | NUR ---
PT SEEN BY DR GOODRICH. HE SPOKE WITH THE PT'S SON AND WHO WERE AT THE BEDSIDE. BP OF154/62 AND HR 114. DECREASED LEVOPHED TO 3 MCG. CONTINUE TO MONITOR VS.
--- NOTE | 2019-03-02 13:26 | NUR ---
BP OF 138/56 AND TURNED LEVOPHED FROM 3MCG TO 2 MCG. CONTINUE TO MONITOR,
--- NOTE | 2019-03-02 16:30 | NUR ---
MD VISIT PT SEEN AND EXAMINED BY DR PARSONS. UPDATED HIM ON THE PT'S CURRENT CONDITION. JEAN-PAUL RT, TO THE BEDSIDE. PER MD ORDER , DECREASED TV TO 420 AND RATE TO 10. PT WITH TV 410-420'S AND O2 SAT OF F95%. CONTINUE TO MONITOR. HE REQUESTS TO TURN OFF ALL SEDATION IN AM FOR SEDATION VACATION AND ASSESS NEURO STATUS UNLESS PT STARTS STACKING BREATHS AND/OR DESATURATING.
--- NOTE | 2019-03-02 16:40 | NUR ---
Respiratory note: VENT CHANGES ORDERED PER DR. PARSONS. VT CHANGED FROM 470 TO 420, AND RR FROM 14 TO 10. ABG ORDERED FOR TOMORROW 03/03/19 AT 0600.
--- NOTE | 2019-03-02 19:35 | NUR ---
ASSESSMENT PT LAYING IN BED , SEDATED WHILE ORALLY INTUBATED. NO SPONTANEOUS MOVEMENT NOTED. PT CONNECTED TO ICU MONITORS. LUNGS CLEAR AND DIMINISHED THROUGHOUT. O2 SAT OF 98%. ST 127. SCDS TO BLE LOWER EXTREMITIES. NGT TO L NARES. FEEDING OFF AND RESIDUAL OF 80 ML BILE FLUID. UNKNOWN LAST BM. KING HANGING BELOW BLADDER, PATENT DRAINING PALE CLEAR YELLOW URINE TO GRAVITY. OPTIFOAM TO SACRUM IN PLACE COVERING SMALL SCRATCH TO RIGHT BUTTOCK. PT HAS CHEST TUBE IN THE RIGHT CHEST, TO PLEURAVAC AND TO 20 CM SUCTION, DRAINING MINIMAL AMOUNT OF SEROSANGUINOUS FLUID. LEFT CHEST HEIMLICH VALVE IN PLACE. AIR LEAK NOTED ON CHEST TUBE AND PER REPORT, MD AWARE. CREPITUS NOTED TO RIGHT AND LEFT UPPER CHEST TO NECK AND ON UPPER RIGHT ARM. RAILS UP X4 AND BED IN LOW POSITION, WHEELS LOCKED. PT IS IN FULL VIEW OF RN STATION. NO SS OF DISTRESS NOTED AT THIS TIME. WILL CONTINUE TO CARE FOR AND MONITOR.
--- NOTE | 2019-03-02 19:59 | NUR ---
REPORT BEDSIDE REPORT GIVEN TO NIGHT RNKARYN.
--- NOTE | 2019-03-02 23:00 | NUR ---
TITRATING DOWN LEVO TITRATING DOWN SLOWLY ON THE LEVOPHED PT VERY SENSITIVE. CONTINUE TO MONITOR.
--- NOTE | 2019-03-02 23:15 | NUR ---
pt daughter is at bedside pts daughter informed of pts current vs and status, all questions and concerns addressed at this time.
[2019-03-03] VITALS (103 sets, daily range): BP systolic 75–180; BP diastolic 36–123
[2019-03-03] MEDS: ACCU-CHEK COMFORT CURVE STRIP VI SCH ×4 (00:17→18:18)
[2019-03-03] MEDS: PIPERACILLIN-TAZOB 3.375GM 100 ML IV SCH ×4 (00:17→18:18)
[2019-03-03] MEDS: LEVALBUTEROL HCL 1.25 MG/3 ML NEB NEB SCH ×4 (00:34→19:07)
[2019-03-03] MEDS: IPRATROPIUM BROM 0.5 MG/2.5ML INH SOL NEB SCH ×4 (00:34→19:07)
--- NOTE | 2019-03-03 01:20 | NUR ---
pt vs are stable pt remains intubated and sedated. safety measures are in place. will continue to monitor pt
[2019-03-03] MEDS: PHENYLEPHRINE INJ 20 MG in D5W 5% 250 ML IV SCH ×3 (01:55→18:19)
--- NOTE | 2019-03-03 03:25 | NUR ---
hygiene partial bed bath and linen change provided. pt tolerated care. vs remain stable. will continue to care for and monitor
[2019-03-03 04:22] LABS: Basophils # (auto) 0 uL; Eosinophils # (auto) 0 uL; Hematocrit 36.7 % (36.0-46.0); Hemoglobin 12.1 g/dL (12.2-16.2); Lymphocytes # (auto) 0.2 uL; Lymphocytes % (auto) 1.3 % (10.0-50.0); Mean Corpuscular Hgb Conc. 32.9 g/dL (32.0-36.0); Mean Corpuscular Volume 94.2 fL (80.0-100.0); Monocytes # (auto) 0.7 uL; Monocytes % (auto) 4.3 % (0.0-12.0); Neutrophils # (auto) 14.8 uL; Neutrophils % (auto) 94.4 % (37.0-80.0); Platelet Count (auto) 118 10^3/uL (140-450); Red Cell Distribution Width 15.9 % (11.8-14.3); White Blood Cell 15.7 10^3/uL (4.4-10.8)
[2019-03-03 04:43] LABS: Albumin 2.5 g/dL (3.4-5.0); Potassium 3.3 mmol/L (3.5-5.1)
--- NOTE | 2019-03-03 04:45 | NUR ---
family at bedside
--- NOTE | 2019-03-03 04:45 | NUR ---
pt son is at bedside pts son informed of pts current vs and status, all questions and concerns addressed at this time.
[2019-03-03 04:47] LABS: BUN/Creatinine Ratio 43.6; Bilirubin, Total 1.1 mg/dL (0.2-1.0); Total Protein 5.4 g/dL (6.4-8.2)
--- NOTE | 2019-03-03 05:15 | NUR ---
LEVO SHUT OFF PT VS ARE STABLE. BP 117/62 WITHOUT LEVO. WILL CONTINUE TO MONITOR
[2019-03-03] MEDS: METOPROLOL TARTRATE 1MG/1ML-5ML VIAL IV SCH ×4 (06:00→18:00)
[2019-03-03] MEDS: InsuLIN REG 1unit/0.01ml Soln (100units/ml) SC SCH ×4 (06:00→18:00)
[2019-03-03] MEDS: methylPREDNISolone SOD SUCC 125 MG/2 ML VL IV SCH (06:32)
[2019-03-03] MEDS: FUROSEMIDE 20 MG/2 ML VIAL IV SCH (06:32)
[2019-03-03] MEDS: NOREPINEPHRINE 8 MG/250ML KIT 250 ML IV SCH (09:15)
--- NOTE | 2019-03-03 10:08 | NUR ---
1000 03/03/19 Contacted leann Randall at [facility] and requested authorization be provided for patient's continued stay. Per Tonia, assigned Conservation Planner Kandice has to review today's clinical information (which Tonia confirmed was received) before a decision can be made. I requested that Tonia have Conservation Planner Kandice give me a call-provided her with my contact information. I faxed over Dr. Jose Alejandro Adler's progress notes for today stating patient is not stable for transfer-I relayed this information to leann Randall.
--- NOTE | 2019-03-03 10:30 | NUR ---
PT TURNED FOR COMFORT TO HER RIGHT SIDE. VSS. WITH EYES OPEN BUT NOT FOLLOWING ANY COMMANDS. TURNED OFF FENTANYL. CONTINUE TO MONITOR.
[2019-03-03] MEDS: fentaNYL Drip 2500mCg/250mlNS 250 ML IV SCH (10:42)
[2019-03-03] MEDS ORDERED: VANCOMYCIN 750mg/250ml 250 ML IV SCH ×2 (11:00→12:30)
--- NOTE | 2019-03-03 11:08 | NUR ---
BP OF 63/30 AND RECYCLED AT 74/32. WILL INCREASE LEVOPHED FROM 0.25 TO 0.5 MCG. AND CONTINUE TO MONITOR.
[2019-03-03] MEDS: PANTOPRAZOLE 40 MG/10 ML VIAL INJ IV SCH (11:11)
[2019-03-03] MEDS: POTASSIUM CHL 20MEQ/100ML 100 ML IV SCH (11:12)
[2019-03-03] MEDS ORDERED: SODIUM CHLORIDE 0.9% 500 ML IV ONE (12:00)
[2019-03-03] MEDS ORDERED: VANCOMYCIN PER PHARMACY 0 MG IV SCH (12:30)
[2019-03-03] MEDS: MIDAZOLAM DRIP 50 mg/50mL 50 ML IV SCH (13:00)
[2019-03-03] MEDS ORDERED: DAPTOmycin 300 MG in SODIUM CHL 0.9% 50 ML IV ONE (14:00)
--- NOTE | 2019-03-03 14:33 | NUR ---
Nutrition Follow-up Notes Wt.: 55.3 kg Pt`s intubated sedated with no family by beside. per RN pt off EN support due to high residuals and not tolerating feeds. pt is currently NPO was on Jevity 1.2 Est. Needs: 1700 kcal to 1950 kcal (25-30 kcal/kgBW), 56 gms to 73 gms pro (1.0-1.3 gms/kgBW d/t severe hypoalbuminemia). Will continue to monitor pertinent labs and reassess nutrient need prn Labs: CA 8.0 L, ALB 2.5 L, GLU 141 H, ROSALINDA 1.1 H, BUN 24 H Skin: Ajay scale 14 mod risk, pt with redness sacrum per documentation lead. GI: Pt has no BM reported per documentation lead. PES: Altered nutrition related lab values r/t current/chronic medical condition aeb hyperglycemia, hypokalemia, hyperchloremia, elev. BUN, LFTs, hypocalcemia and severe hypoalbuminemia Increased nutrient needs r.t current chronic medical condition aeb 108% IBW, BMI 21.9 kg/m2, decreased muscle mass, intubated, sedated, NPO. Will continue to monitor NPO status, skin status, pertinent labs and weight trend. F/u in 2 to 3 days. Rec.: 1.) If still NPO in next 48 hrs, consider alternate nutrition support if medically appropriate. 2.) EN support preferred with formula choice of Jevity 1.3 Demian @ 60 ml/hr goal rate as tolerated. 3.) If Albumin continues trending down, consider Prostat 1 pkt BID. 4.) Consider daily MVI with minerals and Asc acid 500 mgs BID prn. 5.) Advance gradually to oral diet when medically appropriate. 6.) Refer to RD for further nutrition educ. and weight monitoring upon discharge. 7.) Continue current plan of care.
--- NOTE | 2019-03-03 17:27 | NUR ---
PT RESTING IN BED , NO SEDATION AND ON 0.5 MCG/MIN OF LEVOPHED WITH A BP OF 93/39. STILL NOT WAKING UP AND FOLLOWING ANY COMMANDS. PER DR PARSONS, OKAY TO CPAP UP UNTIL 1900 TONIGHT. IF PT STILL NOT AWAKE AND FOLLOWING COMMANDS, THEN WILL HOLD OFF ON CPAP TRIAL UNTIL AM.
--- NOTE | 2019-03-03 19:30 | NUR ---
REPORT GIVEN TO NIGHT RNLYRIC. BEDSIDE CHECK DONE.
--- NOTE | 2019-03-03 19:50 | NUR ---
OPEN ASSUMED CARE OF FEMALE PT ORALLY INTUBATED. PT OFF SEDATION. PT OPENS EYES TO TACTILE STIMULI. UNABLE TO TRACK. PT ABLE TO SQUEEZE R. HAND WHEN ASKED. ABLE TO MOVE R. FOOT. UNABLE TO SQUEEZE L. HAND OR MOVE L. FOOT. PT FATIGUED. FALLS BACK TO SLEEP AFTER TACTILE STIMULATION AND CARES. SINUS TACH ON POWER TRUCK DRIVER. NGT TO L. NARE WITH JEVITY FEEDING INFUSING AT 10 ML/HR. 10 ML RESIDUAL ASPIRATED/RETURNED. PLACEMENT VERIFIED. FEEDING RESUMED. L UPPER CHEST WITH HEIMLICH VALVE ATTACHED TO ATRIUM COLLECTION UNIT SECURED TO FLOOR. MOD AIR LEAK OBSERVED. DRAINING SEROUS DRAINAGE. CREPITUS PALPATED AT INSERTION SITE. DRESSING OBSERVED TO R. UPPER CHEST S/P HEIMLICH REMOVAL. DRESSING CDI. R. LAT. CHEST TUBE IN PLACE DRAINING SEROUS SANGUINEOUS DRAINAGE TO ATRIUM COLLECTION UNIT SECURED TO FLOOR. BOTH ATRIUMS TO 20 CM SUCTION. HIGH GRADE AIR LEAK OBSERVED TO R. ATRIUM WITH CREPITUS PALPATED TO R. CHEST EXTENDING TO R. ARM. PER REPORT MD'S AWARE. DRESSING CDI. TUBING WITH NO KINKS OR COMPROMISE IN TUBING. R. IJ TLC IN PLACE ALL PORTS PATENT. KING TO GRAVITY DRAINING CLEAR YELLOW URINE. ROSALINDA SCD'S IN PLACE. SML CIRCULAR BLANCHABLE REDNESS OBSERVED TO L. HEEL. HEELS OFFLOADED WITH PILLOWS. OPTIFOAM GENTLE SACRAL DRESSING IN PLACE PREVENTATIVE. ROSALINDA ARM BRUISING OBSERVED. BED IN LOWEST LOCKED POSITION. SIDE RAILS UP X 2. HOB ELEVATED 35 DEGREES. NO INDICATION OF PAIN OBSERVED. PT IN FULL VIEW OF RN STATION. WILL CONTINUE TO MONITOR.
--- NOTE | 2019-03-03 19:50 | NUR ---
ASSESSMENT PT IN BED WITH EYES CLOSED. ON VERSED AT 2 MG/HR. TURNED OFF FOR SEDATION VACATION. WILL TURN OFF FENTANYL WHEN DR PARSONS HERE. PT ON THE VENT WITH VENT SETTINGS OF : 8 ETT 23 AT THE LIP, TV 420, AC 10, 30% AMD PEEP OF 5. LUNGS CLEAR AND DIMINISHED THROUGHOUT. SHAI CHEST HEIMLICH VALVE TO 20 CM SUCTION WITH AIR LEAK NOTED. CREPITUS UP TO CLAVICLE. RIGHT CHEST TUBE WITH PLEURAVAC TO 20 CM SUCTION AND AIR LEAK NOTED. MD AWARE OF AIR LEAKS. CREPITUS ON RIGHT SIDE TO BASE OF NECK AND GOING DOWN RIGHT ARM TO THE WRIST. O2 SAT OF 95%. TELE ST 115. SCDS TO BLE. PALPABLE PULSES TO ALL EXTREMITIES. ABD SOFT WITH HYPOACTIVE BOWEL SOUNDS. LAST BM UNKNOWN. KING DRAINING CLEAR YELLOW URINE. SCATTERED BRUISING NOTED TO UPPER CHEST, AND BOTH ARMS AND HANDS,TURNED FOR COMFORT TO HER LEFT SIDE. OPTIFOAM TO SACRUM WITH BLANCHABLE PINK SKIN UNDERNEATH. RAILS UP X4 AND BED IN LOW POSITION FOR PT SAFETY. Addendum: 03/03/19 at 1955 by Diann Johnson RN ASSESSMENT WAS FOR 075 THIS AM
--- NOTE | 2019-03-03 20:10 | NUR ---
FAMILY VISIT PT DAUGHTER IN LAW TO UNIT FOR VISIT.
--- NOTE | 2019-03-03 20:37 | NUR ---
DECREASED MAP PT WITH SBP 90'S MAP 57 LEVO GTT RESTARTED. SEE IV SPREADSHEET.
--- NOTE | 2019-03-03 21:30 | NUR ---
FAMILY VISIT PT DAUGHTER AND SON TO UNIT FOR VISIT. PLAN OF CARE DISCUSSED. ALL QUESTIONS AND CONCERNS ADDRESSED.
[2019-03-03] MEDS: methylPREDNISolone SOD SUCC 40 MG/ML VL IV SCH (22:27)
[2019-03-04] VITALS (94 sets, daily range): BP systolic 99–170; BP diastolic 35–73
[2019-03-04] MEDS: ACCU-CHEK COMFORT CURVE STRIP VI SCH ×4 (00:04→17:48)
[2019-03-04] MEDS: PIPERACILLIN-TAZOB 3.375GM 100 ML IV SCH ×4 (00:05→17:44)
[2019-03-04] MEDS: IPRATROPIUM BROM 0.5 MG/2.5ML INH SOL NEB SCH ×4 (00:55→18:11)
[2019-03-04] MEDS: LEVALBUTEROL HCL 1.25 MG/3 ML NEB NEB SCH ×4 (00:55→18:11)
[2019-03-04] MEDS: PHENYLEPHRINE INJ 20 MG in D5W 5% 250 ML IV SCH ×3 (02:55→19:35)
--- NOTE | 2019-03-04 04:00 | NUR ---
Patient bathe/linen change Patient given complete bath. Skin integrity assessed for any changes. Linens changed. Patient repositioned for comfort. R. SIDE CHEST TUBE DRESSING CHANGE. INSERTION SITE CLEANSED WITH CHLORHEXIDINE SWABS. PETROLEUM GAUZE PLACED COVERED BY STERILE 4X4'S COVERED WITH FOAM PRESSURE TAPE. PT TOLERATED WELL.
[2019-03-04 04:04] LABS: Basophils # (auto) 0 uL; Basophils % (auto) 0.1 % (0.0-2.0); Eosinophils # (auto) 0 uL; Hematocrit 35.9 % (36.0-46.0); Hemoglobin 11.7 g/dL (12.2-16.2); Lymphocytes # (auto) 0.2 uL; Lymphocytes % (auto) 1.4 % (10.0-50.0); Mean Corpuscular Hgb Conc. 32.5 g/dL (32.0-36.0); Mean Corpuscular Volume 95.3 fL (80.0-100.0); Monocytes # (auto) 0.8 uL; Neutrophils # (auto) 14.3 uL; Neutrophils % (auto) 93.5 % (37.0-80.0); Platelet Count (auto) 111 10^3/uL (140-450); Red Blood Cells 3.77 10^6/uL (4.0-5.20); Red Cell Distribution Width 15.8 % (11.8-14.3); White Blood Cell 15.2 10^3/uL (4.4-10.8)
[2019-03-04 04:32] LABS: Albumin 2.4 g/dL (3.4-5.0); Calcium 7.8 mg/dL (8.5-10.1); Potassium 3.2 mmol/L (3.5-5.1)
[2019-03-04 04:33] LABS: BUN/Creatinine Ratio 53.7
[2019-03-04 04:37] LABS: Bilirubin, Total 0.8 mg/dL (0.2-1.0)
[2019-03-04] MEDS ORDERED: VANCOMYCIN 750mg/250ml 250 ML IV SCH (05:00)
[2019-03-04] MEDS: InsuLIN REG 1unit/0.01ml Soln (100units/ml) SC SCH ×4 (05:43→17:48)
[2019-03-04] MEDS: METOPROLOL TARTRATE 1MG/1ML-5ML VIAL IV SCH ×4 (05:43→17:53)
--- NOTE | 2019-03-04 07:54 | NUR ---
AT BEDSIDE DR. GORMAN AT BEDSIDE TO ASSESS PATIENT AND DISCUSS PLAN OF CARE.
--- NOTE | 2019-03-04 08:00 | NUR ---
PT UNSTABLE FOR TRANSFER TO CT AT THIS TIME. DISCUSSED WITH KARYN. PRIMARY RN,. WILL RE EVALUATE AGAIN LATER IN LATER IN THE DAY.
--- NOTE | 2019-03-04 08:02 | NUR ---
AT BEDSIDE DR. Mariela DONAHUE AT BEDSIDE TO ASSESS PATIENT AND DISCUSS PLAN OF CARE. NO NEW ORDERS RECEIVED AT THIS TIME.
[2019-03-04] MEDS: NOREPINEPHRINE 8 MG/250ML KIT 250 ML IV SCH (09:15)
[2019-03-04 09:53] LABS: Hepatitis A Ab IgM Negative; Hepatitis B Core IgM Negative; Hepatitis B Surface Antigen Negative (Negative)
[2019-03-04 09:54] LABS: Hepatitis C Antibody Negative (Negative)
[2019-03-04] MEDS ORDERED: DAPTOmycin 0 MG in SODIUM CHL 0.9% 50 ML IV SCH (10:00)
[2019-03-04] MEDS: POTASSIUM CHL 20MEQ/100ML 100 ML IV SCH (10:39)
[2019-03-04] MEDS: PANTOPRAZOLE 40 MG/10 ML VIAL INJ IV SCH (10:40)
[2019-03-04] MEDS: methylPREDNISolone SOD SUCC 40 MG/ML VL IV SCH ×2 (10:40→22:17)
[2019-03-04] MEDS: fentaNYL Drip 2500mCg/250mlNS 250 ML IV SCH (10:42)
--- NOTE | 2019-03-04 11:45 | NUR ---
AT BEDSIDE DR. CURTIS AT BEDSIDE TO ASSESS PATIENT AND DISCUSS PLAN OF CARE W/ FAMILY AT BEDSIDE. NO NEW ORDERS RECEIVED AT THIS TIME.
--- NOTE | 2019-03-04 11:45 | NUR ---
MD CALLED CALLED DR. ALFORD REGARDING PT ELEVATED HEART RATE, 120'S-130'S. NEW ORDERS RECEIVED. ORDERS NOTED IN THE CHART.
[2019-03-04] MEDS ORDERED: DIGOXIN (250MCG/ML) 2 ML AMPULE ONE (11:47)
--- NOTE | 2019-03-04 12:04 | NUR ---
[facility] UPDATE SPOKE WITH RUSTY, INSURANCE SALESPERSON, FROM [employer]. GAVE UPDATE ON PATIENT CONDITION.
[2019-03-04] MEDS ORDERED: DIGOXIN (250MCG/ML) 2 ML AMPULE IV ONE (12:15)
--- NOTE | 2019-03-04 12:50 | NUR ---
1230 03/04/19 Contacted allocation analyst Dinorah at [facility] and requested authorization to be provided for patient's continued stay. Per Dinorah, the assigned case management social worker today is Mikaela, she has to review the clinical information from today before she can make a decision regarding further authorization. Dinorah did verify that they received clinical information today on this patient. I made Dinorah aware that patient is not stable today for transfer-faxed Dr. Jose Alejandro Adler's progress notes stating the above to [phone]. I requested that allocation analyst have case management social worker Mikaela give me a call regarding authorization for this patient.
[2019-03-04] MEDS: MIDAZOLAM DRIP 50 mg/50mL 50 ML IV SCH (13:00)
--- NOTE | 2019-03-04 13:14 | NUR ---
LEADING FIREFIGHTER AT BEDSIDE
--- NOTE | 2019-03-04 14:05 | NUR ---
PLACED PT BACK ON AC MODE. PT UNABLE TO FOLLOW COMMANDS DURING WEANING PARAMETERS. MADE AWARE AND PARK BOSS
--- NOTE | 2019-03-04 14:15 | NUR ---
PT PT ON CPAP TRIAL PER DR. KIRSTEN TENA
--- NOTE | 2019-03-04 14:30 | NUR ---
CPAP TRIAL PT CURRENTLY ON CPAP TRIAL WITH NO SIGNS/SYMPTOMS OF DISTRESS. TOLERATING TRIAL WELL WITH STABLE VITAL SIGNS. WILL CONTINUE TO MONITOR.
[2019-03-04] MEDS: DAPTOmycin 300 MG in SODIUM CHL 0.9% 50 ML IV SCH (15:30)
--- NOTE | 2019-03-04 15:30 | NUR ---
CUBICIN IVPB ANTIBIOTICS STARTED AT 15:30 DUE TO MEDICATION NOT BEING AVAILABLE AT SCHEDULED TIME.
--- NOTE | 2019-03-04 15:30 | NUR ---
ELECTROENCEPHALOGRAM-EEG completed on 03/04/2019.
--- NOTE | 2019-03-04 15:31 | NUR ---
CALLED CALLED DR. CURTIS WITH ABG RESULTS POST CPAP TRIAL. AWAITING CALL BACK.
--- NOTE | 2019-03-04 16:01 | NUR ---
MD RETURNED CALL DR. CURTIS MADE AWARE OF ABG RESULTS AND WILL PLAN FOR CPAP TOMORROW.
--- NOTE | 2019-03-04 16:05 | NUR ---
CPAP CPAP TRIAL ENDED. VITAL SIGNS STABLE, NO SIGNS/SYMPTOMS OF DISTRESS. VENTILATOR MODE SET BACK TO A/C WITH SETTINGS NOTED IN CHART.
--- NOTE | 2019-03-04 18:10 | NUR ---
COOLING MEASURES PT TEMP 99.9. COOLING MEASURES INITIATED. WILL CONTINUE TO MONITOR.
[2019-03-05] VITALS (107 sets, daily range): BP systolic 133–174; BP diastolic 39–71
[2019-03-05] MEDS: LEVALBUTEROL HCL 1.25 MG/3 ML NEB NEB SCH ×5 (00:22→23:47)
[2019-03-05] MEDS: IPRATROPIUM BROM 0.5 MG/2.5ML INH SOL NEB SCH ×5 (00:22→23:47)
[2019-03-05] MEDS: PIPERACILLIN-TAZOB 3.375GM 100 ML IV SCH ×5 (01:19→22:48)
[2019-03-05] MEDS: METOPROLOL TARTRATE 1MG/1ML-5ML VIAL IV SCH ×5 (01:21→22:48)
[2019-03-05] MEDS: MORPHINE SULFATE 4 MG/ML SYR/VIAL IV PRN (02:34)
[2019-03-05] MEDS: PHENYLEPHRINE INJ 20 MG in D5W 5% 250 ML IV SCH ×3 (03:55→20:35)
[2019-03-05 04:05] LABS: Albumin 2.4 g/dL (3.4-5.0); Calcium 8.1 mg/dL (8.5-10.1); Potassium 4.1 mmol/L (3.5-5.1)
[2019-03-05 04:10] LABS: BUN/Creatinine Ratio 56.6; Bilirubin, Total 0.9 mg/dL (0.2-1.0); Total Protein 5.1 g/dL (6.4-8.2)
[2019-03-05 04:16] LABS: Hematocrit 37.8 % (36.0-46.0); Hemoglobin 12.3 g/dL (12.2-16.2); Mean Corpuscular Hemoglobin 30.8 pg (28.0-32.0); Mean Corpuscular Hgb Conc. 32.5 g/dL (32.0-36.0); Mean Corpuscular Volume 94.6 fL (80.0-100.0); Platelet Count (auto) 141 10^3/uL (140-450); Red Blood Cells 3.99 10^6/uL (4.0-5.20); Red Cell Distribution Width 15.2 % (11.8-14.3); White Blood Cell 17.8 10^3/uL (4.4-10.8)
[2019-03-05 04:45] LABS: Band Neutrophils % (manual) 0; Basophils % (manual) 0 (0.0-2.0); Blast Cells 0; Eosinophils % (manual) 0 (0-7); Metamyelocytes % 0; Myelocytes % 0; Promyelocytes % 0; Reactive Lymphocytes 0
[2019-03-05] MEDS: InsuLIN REG 1unit/0.01ml Soln (100units/ml) SC SCH ×5 (05:50→22:48)
[2019-03-05] MEDS: ACCU-CHEK COMFORT CURVE STRIP VI SCH ×4 (05:50→18:04)
[2019-03-05 06:24] LABS: Lymphocytes % (manual) 3 (10.0-50.0); Monocytes % (manual) 5 (0-12)
--- NOTE | 2019-03-05 08:48 | NUR ---
PT PLACED ON CPAP TRIAL AND MJ. WELL. PT ON PS 8, PEEP 5, 30%FIO2. WILL CONTINUE TO MONITOR PT.
[2019-03-05] MEDS: POTASSIUM CHL 20MEQ/100ML 100 ML IV SCH (09:11)
[2019-03-05] MEDS: NOREPINEPHRINE 8 MG/250ML KIT 250 ML IV SCH (09:11)
--- NOTE | 2019-03-05 09:13 | NUR ---
0900 03/05/19 Contacted computer operations analyst Diamond at [facility] and requested authorization to be provided for patient's continued stay. Per Diamond they did receive clinical information today on this patient but that when a case advocate is assigned for today, she will have to review the clinical information with her MD before she can make a decision regarding further authorization. I requested that Diamond have the assigned case advocate call me.
[2019-03-05] MEDS: PANTOPRAZOLE 40 MG/10 ML VIAL INJ IV SCH (09:44)
[2019-03-05] MEDS: methylPREDNISolone SOD SUCC 40 MG/ML VL IV SCH ×2 (09:44→20:05)
[2019-03-05] MEDS ORDERED: MICAFUNGIN SODIUM 100 MG in SODIUM CHL 0.9% 100 ML IV SCH (10:00)
[2019-03-05] MEDS: DAPTOmycin 300 MG in SODIUM CHL 0.9% 50 ML IV SCH (10:10)
--- NOTE | 2019-03-05 10:16 | NUR ---
EXTUBATED PT PER DR. CURTIS'S ORDERS. PT PLACED ON CA 50% AT 12LPM. NO STRIDOR NOTED, BP 145/69, HR 121, RR 18. NO DISTRESS NOTED. PARK CUENCA AT BEDSIDE. WILL CONTINUE TO MONITOR PT.
[2019-03-05] MEDS: fentaNYL Drip 2500mCg/250mlNS 250 ML IV SCH (10:42)
--- NOTE | 2019-03-05 11:56 | NUR ---
Nutrition Follow-up Notes Wt.: 55.5 kg today. Pt's intubated, non-sedated, off from EN support, no immediate family members at beside except for RT for CPAP trial during rounds earlier. Noted pt's successfully extubated, remains NPO at this time. Est. Needs: 1700 kcal to 1950 kcal (25-30 kcal/kgBW), 56 gms to 73 gms pro (1.0-1.3 gms/kgBW d/t severe hypoalbuminemia). Will continue to monitor pertinent labs and reassess nutrient need prn Labs: Gluc 127 H, CO2 36 H, BUN 35 H, Cr 0.53 L, Ca 8.1 L, Tpro 5.1 L, Alb 2.4 L, AST 57 H, ALT 299 H Skin: Ajay scale 14 mod risk, pt with redness sacrum per economic consultant. Pls refer to latest edging machine catcher's notes for further details re: tx plans. GI: Pt has no bowel activity since 02/27/19 per economic consultant. PES: Altered nutrition related lab values r/t current/chronic medical condition aeb hyperglycemia, hypokalemia, hyperchloremia, elev. BUN, LFTs, hypocalcemia and severe hypoalbuminemia Partially resolved: Increased nutrient needs r.t current chronic medical condition aeb 108% IBW, BMI 21.9 kg/m2, decreased muscle mass, intubated, sedated, NPO. Will continue to monitor NPO status, skin status, pertinent labs and weight trend. F/u in 2 to 3 days. Rec.: 1.) Advance gradually to oral diet (per ST's diet texture recommendation) when medically appropriate. 2.) If Albumin continues trending down, consider Prostat 1 pkt BID. 3.) Consider daily MVI with minerals and Asc acid 500 mgs BID prn. 4.) If still NPO consider to resume alternate nutrition support if medically appropriate. 5.) Refer to RD for further nutrition educ. and weight monitoring upon discharge. 6.) Continue current plan of care.
[2019-03-05] MEDS: MIDAZOLAM DRIP 50 mg/50mL 50 ML IV SCH (12:28)
[2019-03-05] MEDS ORDERED: DILTIAZEM HCL 25 MG/5 ML VIAL IV ONE (14:45)
[2019-03-05] MEDS ORDERED: ACETAMINOPHEN 650 mg PER 20 mL UD ONE (16:11)
[2019-03-05] MEDS ORDERED: ACETAMINOPHEN 650 mg PER 20 mL UD PO PRN (16:15)
--- NOTE | 2019-03-05 20:28 | NUR ---
Placed page for hospitalist and MD Rhodes regarding elevated BP. Awaiting call back.
[2019-03-05] MEDS ORDERED: LABETALOL HCL 5 MG/ML ML 20ML VIAL IV ONE ×3 (20:45→20:48)
--- NOTE | 2019-03-05 20:50 | NUR ---
Alfonso CABRERA one time dose ordered for Labetolol iv 10mg once. Will administer and continue to closely monitor
[2019-03-05] MEDS ORDERED: ENALAPRILAT 1.25 MG/ML-1ML VIAL IV ONE (23:45)
[2019-03-06] VITALS (33 sets, daily range): BP systolic 98–184; BP diastolic 53–76
[2019-03-06] MEDS ORDERED: LABETALOL HCL 5 MG/ML ML 20ML VIAL IV ONE (00:45)
--- NOTE | 2019-03-06 04:05 | NUR ---
HFNC INCREASED TO 40 L AND 45% POX 95%
[2019-03-06] MEDS: PIPERACILLIN-TAZOB 3.375GM 100 ML IV SCH (04:28)
[2019-03-06] MEDS: METOPROLOL TARTRATE 1MG/1ML-5ML VIAL IV SCH (04:30)
[2019-03-06] MEDS: ACCU-CHEK COMFORT CURVE STRIP VI SCH ×2 (04:35)
[2019-03-06] MEDS: PHENYLEPHRINE INJ 20 MG in D5W 5% 250 ML IV SCH (04:55)
[2019-03-06] MEDS: InsuLIN REG 1unit/0.01ml Soln (100units/ml) SC SCH (05:51)
[2019-03-06] MEDS: IPRATROPIUM BROM 0.5 MG/2.5ML INH SOL NEB SCH (06:47)
[2019-03-06] MEDS: LEVALBUTEROL HCL 1.25 MG/3 ML NEB NEB SCH (06:48)
--- NOTE | 2019-03-06 07:10 | NUR ---
Respiratory note: RECEIVED PATIENT ON HFNC WITH THE ABOVE CHARTED SETTINGS. SKIN IS CLEAN/CLEAR AND INTACT NEAR CANNULA. SHE APPEARS TO BE TOLERATING NASAL PRONGS AND SETTINGS WELL, HOWEVER, SHE IS CURRENTLY SHOWING SIGNS OF RESPIRATORY DISTRESS SHE IS GUPPY BREATHING. RN DI AWARE OF PATIENTS CONDITION AND STATES HER BREATHING HAS BEEN THIS WAY THROUGHOUT THE NIGHT. LUNG SOUNDS DIM WITH CRACKLES T/O. CREPITUS CAN BE FELT ON RIGHT UPPER CHEST. MED-NEB TX ADMINISTERED AT THIS TIME. WILL CONTINUE TO ASSESS PATIENT WELL HFNC TOLERANCE. FLOW DECREASED TO 45LPM AT THIS TIME, NO OTHER CHANGES MADE. HOSPITALIST NURY ODEN NP PAGED REGARDING PATIENTS GUPPY BREATHING . AWAITING CALL BACK.
--- NOTE | 2019-03-06 07:12 | NUR ---
Respiratory note: NURY ODEN NP PAGED REGARDING PATIENTS DECLINED RESPIRATORY STATUS. AWAITING CALL BACK.
--- NOTE | 2019-03-06 07:30 | NUR ---
ASSESS- PT. LYING IN BED, AROUSABLE TO NAME ONLY. PT. IS LETHARGIC. DOES NOT SQUEEZE HAND ON COMMAND. NO MOVEMENT OF EXTREMITIES SEEN. PT. IS ON HIGH FLOW 50 LITERS, FIO2-45%. PT. IS GUPPY BREATHING, RETRACTIVE ON CHEST. LUNGS CLEAR ROSALINDA. INSPIRATORY AND EXPIRATORY, DIMINISHED THROUGHOUT. RR TEENS TO LOW 20'S. O2 SATS 94%. HEIMLICH VALVE TO LT. CHEST INTACT WITH DSG. D/I TO ATRIUM CT AT 20 CM. H20 SUCTION WITH SEROUS DRAINAGE. RT. CT INTACT TO ATRIUM AT 20 CM. H20 SUCTION WITH LEAK, DSG. D/I WITH SANGINOUS DRAINAGE. NGT LT. NARE INTACT, CLAMPED. PT. IS NPO. ABD. SOFT, FLAT, NON-TENDER. BOWEL SOUNDS ALL FOUR QUADRANTS. F/C TO GRAVITY WITH CLEAR YELLOW URINE. RADIAL PULSES WEAK, PALPABLE ROSALINDA. DORSALIS PEDAL PULSES WEAK, PALPABLE ROSALINDA. 1 PLUS EDEMA LE ROSALINDA. SCD'S ROSALINDA. LE. HANDS AND ARMS ROSALINDA. WITH BRUISING. SKIN TEAR ON COCCYX WITH OPTIFOAM DSG. D/I. TLC RT. IJ INTACT. SR, HR 80'S-90'S WITHOUT ECTOPY. SBP LOW 170'S CURRENTLY. MONITORING BP.
--- NOTE | 2019-03-06 07:38 | NUR ---
Respiratory note: STILL AWAITING CALL BACK FROM HOSPITALIST NURY ODEN NP REGARDING PATIENTS DECLINED RESPIRATORY STATUS.
--- NOTE | 2019-03-06 07:50 | NUR ---
DR. LEE Provider/Hospitalist at bedside. GAVE UPDATE ON PT.
--- NOTE | 2019-03-06 07:55 | NUR ---
DR. CURTIS Provider/Hospitalist at bedside. GAVE UPDATE ON PT. STAT ABG AND CXR ORDERED BY DR. CURTIS, PT. IS GUPPY BREATHING, RETRACTING ON CHEST. PT. OPENS EYES TO NAME ONLY, DOES NOT FOLLOW ANY OTHER COMMANDS. PT. IS LETHARGIC.
--- NOTE | 2019-03-06 08:03 | NUR ---
Respiratory note: PATIENT REMAINS IN RESPIRATORY DISTRESS, ABG DRAWN AND CRITICAL RESULTS REPORTED TO DR. CURTIS. FLOW INCREASED TO 70LPM PER DR. CURTIS'S BEDSIDE ORDER. ABG TO FOLLOW IN 30MIN TO REASSESS PH AND CO2.
[2019-03-06] MEDS ORDERED: ROCURONIUM 10MG/ML 10ML VIAL IV ONE (08:37)
[2019-03-06] MEDS ORDERED: ETOMIDATE (2MG/ML) 20ML VIAL IV ONE (08:37)
--- NOTE | 2019-03-06 08:43 | NUR ---
DR. CURTIS AT TO INTUBATE PT. DAUGHTER HERE TO VISIT AND MADE AWARE. PT. GIVEN ETOMIDATE 16 MG. IVP. PT. INTUBATED WITH SIZE # 8.0 ET, 24 AT THE LIP, AC-14, TV-420, PEEP-3, FIO2-100%. STAT CXR ORDERED AND DONE. LUNGS CLEAR ROSALINDA. INSPIRATORY AND EXPIRATORY, DIMINISHED THROUGHOUT.
--- NOTE | 2019-03-06 08:59 | NUR ---
PT'S. HR DECREASED TO 32 FROM 80'S-90'S WITH WEAK PULSE SR. GAVE PT. ATROPINE 0.5 MG. IVP. PT'S. HR THEN DECREASED TO THE 20'S, NO PULSE FELT. RAFAELA LAU CALLED AT 0900.
[2019-03-06] MEDS ORDERED: SODIUM BICARBONATE 8.4 % INJ 50ML VIAL IV ONE ×2 (09:00→09:36)
--- NOTE | 2019-03-06 09:00 | NUR ---
CODE SID CALLED. DR. CHARLES AT THE . SEE CODE SHEET. DAUGHTER AND GRANDAUGHTER IN THE WAITING RM. AND MADE AWARE OF PT'S. STATUS. PT. IS FULL CODE AT THIS TIME AND DAUGHTER WANTS EVERYTHING DONE.
--- NOTE | 2019-03-06 09:06 | NUR ---
OBTAINED ROSC. DR. CURTIS AND Mariela DONAHUE NOTIFIED. DAUGHTER MADE AWARE. STARTED PT. ON BICARB GTT. WITH 2 AMPS SODIUM BICARB AT 150 CC/HR. PER DR. CHARLES. ALSO GAVE 2 AMPS SODIUM BICARB BEFORE ORDERED.
[2019-03-06] MEDS ORDERED: SODIUM BICARBONATE 8.4% INJ 50ML SYRINGE ONE (09:11)
[2019-03-06] MEDS ORDERED: ADENOSINE 6 MG/2 ML INJ IV ONE (09:12)
[2019-03-06] MEDS ORDERED: SODIUM CHLORIDE 0.9% 1,000 ML IV SCH (09:15)
[2019-03-06] MEDS ORDERED: AMIODARONE HCL 900 MG in DEXTROSE 500 ML IV SCH ×2 (09:30→15:30)
[2019-03-06] MEDS ORDERED: SODIUM BICARBONATE 50ML VIAL 100 ML in SODIUM CHLORIDE 0.9% 1,000 ML IV SCH ×2 (09:30→09:45)
--- NOTE | 2019-03-06 09:33 | NUR ---
RAFAELA LAU CALLED. DAUGHTER MADE AWARE.
--- NOTE | 2019-03-06 09:45 | NUR ---
ROSC HAD BEEN OBTAINED. LAMONTE AT THE . DAUGHTER IN THE WAITING RM. PT. REMAINS FULL CODE.
[2019-03-06] MEDS ORDERED: NOREPINEPHRINE 8 MG/250ML KIT 250 ML IV ONE (09:50)
[2019-03-06] MEDS: NOREPINEPHRINE 8 MG/250ML KIT 250 ML IV SCH (09:55)
--- NOTE | 2019-03-06 10:00 | NUR ---
PT'S. HR DECREASING TO THE 40'S. PT. HAS MOTTLING LE ROSALINDA. AND FACE, PULSE VERY WEAK, INFORMED DTG. AT THIS TIME DAUGHTER IS MAKING PT. DNR STATUS. DR. Mariela DONAHUE INFORMED AND GAVE ORDER.
--- NOTE | 2019-03-06 10:05 | NUR ---
PT. AND Keith MÁRQUEZ RN PRONOUCED PT. WHO IS DNR STATUS. ALL FAMILY MEMBERS AT THE .
--- NOTE | 2019-03-06 10:10 | NUR ---
Respiratory note: PATIENT PRONOUNCED BY HSS RN SINGH AT 1005. PATIENT REMOVED FROM VENTILATOR AT THIS TIME.
--- NOTE | 2019-03-06 10:11 | NUR ---
Respiratory note: PATIENT INTUBATED BY DR. CURTIS AT 0843, WITH AN 8.0 ETT SECURED VIA NINA AT THE 24CM MARKING AT THE LIP. CO2 DETECTOR SHOWED POSITIVE COLOR CHANGE AND CONDENSATION WAS SEEN IN THE TUBE. CXR SHOWED ETT SITTING APPROX 2.2CM ABOVE THE AYANNA. PATIENT PLACED ON V8 CARESCAPE VENT WITH THE FOLLOWING ORDERED SETTINGS: AC 14, 425, +3, 1SEC I-TIME, 100% PER DR. CURTIS'S BEDSIDE ORDER. ABG TO FOLLOW IN 1HR. DURING INITIAL VENT CHECK PATIENT LOST PULSES AND CPR WAS INITIATED. PULSES WERE REGAINED AND PATIENT WAS PLACED BACK ON VENT WITH PREVIOUSLY ORDERED SETTINGS. PATIENT BEGAN TO PEAK PRESSURE AND CHEST TUBES HAD LARGE LEAK. YOU COULD SEE AN INCREASE IN AIR IN RIGHT PLEURAL SPACE THE RIGHT CHEST BEGAN TO RISE AND THERE WAS AN INCREASE IN HOLLOW SOUNDS ON PERCUSSION. HOSPITALIST Dee DIEZ NP CALLED AND HE ORDERED STAT CXR AND ABG. PATIENT LOST PULSES AGAIN BEFORE ABG/CXR COULD BE DONE. CPR INITIATED FOR THE SECOND TIME. PATIENT WAS TAKEN OFF VENTILATOR AND BAGGED VIA AMBU-BAG ON 100% FIO2 FOR DURATION OF CODE. PATIENT REGAINED PULSES AND WAS PLACED BACK ON VENT WITH ALL PREVIOUSLY ORDERED SETTINGS. SHE AGAIN WAS PEAK PRESSURING AND VENT MODE WAS CHANGED TO SIMV WITH ALL OTHER PARAMETERS REMAINING THE SAME, AND A PS OF [address] CURTIS'S ORDER. CXR TAKEN. PULSES AGAIN BEGAN TO LILLIE DOWN, AND BP FELL BELOW 70 SYSTOLIC. PATIENTS DAUGHTER AT THIS TIME REQUESTED ALL LIFE SAVING EFFORTS BE STOPPED AND MADE HER A DNR. HSLisa WINTERS AT BEDSIDE AND TOOK ORDER.
--- NOTE | 2019-03-06 10:25 | NUR ---
[facility] CALLED. PT. HAS ADVANCE DIRECTIVE IN CHART THAT STATES NO ORGAN DONATION, NO TISSUE OR EYE DONATION. HITESH FROM [facility] ASKED TO HAVE COPY FAXED AND RELEASING PT. CASE # [id number].
--- NOTE | 2019-03-06 10:49 | NUR ---
ASSET AVAILABILITY LEADER CALLED. WAITING FOR CALL BACK.
--- NOTE | 2019-03-06 12:10 | NUR ---
SPOKE WITH RN COM[facility]X CARE AND GAVE ALL INFO. PT. WAS CLEARED.
--- NOTE | 2019-03-06 12:30 | NUR ---
SPOKE WITH DAUGHTER AND LET HER KNOW DEHYDROGENATION CONVERTER OPERATOR CLEARED PT. PATIENT DOES NOT HAVE ARRANGEMENTS. GAVE LIST TO DTG. AND WILL LET US KNOW. FAMILY IN WAITING RM. ALL TUBES AND LINES REMOVED FROM PT.
[2019-03-06] MEDS ORDERED: SODIUM BICARBONATE 8.4% INJ 50ML SYRINGE IV ONE (13:00)
[2019-03-06] MEDS ORDERED: AMIODARONE HCL (50 MG/ ML) 3 ML VIAL IV ONE (13:00)
[2019-03-06] MEDS ORDERED: ATROPINE SULF 1 MG/10ml SYR IV ONE (13:00)
[2019-03-06] MEDS ORDERED: EPINEPHrine HCL 1 MG/10 ML SYRG IV ONE (13:00)
[2019-03-06] MEDS ORDERED: CALCIUM CHLOR(10%) 100MG/ML 10ML SYRINGE IV ONE (13:00)
--- NOTE | 2019-03-06 14:30 | NUR ---
FAMILY CHOSE [facility]. WAITING FOR PAVER INSTALLER.
--- NOTE | 2019-03-06 16:42 | NUR ---
[facility] HERE TO GET PT. FAMILY AT THE BS.
== END 2019-03-06 10:05 | disposition expired | DRG 870 ==
LOC: ER 08:33 → EDBD 08:33 → TELE 08:34 → ICU WEST 13:27
PROVIDERS: ADMIT Internal Medicine; ATTEND Family Medicine
PROC: 5A1955Z Respiratory Ventilation, Greater than 96 Consecutive Hours (ICD-10-PCS; principal; 2019-02-27)
PROC: 0W9930Z Drainage of Right Pleural Cavity with Drainage Device, Percutaneous Approach (ICD-10-PCS; 2019-02-27)
PROC: 0BH17EZ Insertion of Endotracheal Airway into Trachea, Via Natural or Artificial Opening (ICD-10-PCS; 2019-02-27)
PROC: 0BH17EZ Insertion of Endotracheal Airway into Trachea, Via Natural or Artificial Opening (ICD-10-PCS; 2019-02-27)
PROC: 5A12012 Performance of Cardiac Output, Single, Manual (ICD-10-PCS; 2019-02-27)
PROC: 0W9930Z Drainage of Right Pleural Cavity with Drainage Device, Percutaneous Approach (ICD-10-PCS; 2019-03-01)
PROC: 5A1935Z Respiratory Ventilation, Less than 24 Consecutive Hours (ICD-10-PCS; 2019-03-06)
DX: A41.9 Sepsis, unspecified organism (principal); J96.21 Acute and chronic respiratory failure with hypoxia; I50.43 Acute on chronic combined systolic (congestive) and diastolic (congestive) heart failure; E43 Unspecified severe protein-calorie malnutrition; I21.4 Non-ST elevation (NSTEMI) myocardial infarction; G92 Toxic encephalopathy; J18.1 Lobar pneumonia, unspecified organism; J96.22 Acute and chronic respiratory failure with hypercapnia; K72.00 Acute and subacute hepatic failure without coma; R65.21 Severe sepsis with septic shock; J93.9 Pneumothorax, unspecified; N39.0 Urinary tract infection, site not specified; E87.4 Mixed disorder of acid-base balance; G93.1 Anoxic brain damage, not elsewhere classified; J44.0 Chronic obstructive pulmonary disease with (acute) lower respiratory infection; J44.1 Chronic obstructive pulmonary disease with (acute) exacerbation; J93.82 Other air leak; K81.0 Acute cholecystitis; I46.9 Cardiac arrest, cause unspecified; D64.9 Anemia, unspecified; I11.0 Hypertensive heart disease with heart failure; B95.2 Enterococcus as the cause of diseases classified elsewhere; B95.7 Other staphylococcus as the cause of diseases classified elsewhere; D75.89 Other specified diseases of blood and blood-forming organs; E03.9 Hypothyroidism, unspecified; E11.9 Type 2 diabetes mellitus without complications; F17.200 Nicotine dependence, unspecified, uncomplicated; I48.91 Unspecified atrial fibrillation; R79.1 Abnormal coagulation profile; Z66 Do not resuscitate; Z79.01 Long term (current) use of anticoagulants; Z82.3 Family history of stroke; Z86.73 Personal history of transient ischemic attack (TIA), and cerebral infarction without residual deficits; Z79.899 Other long term (current) drug therapy; Z68.20 Body mass index [BMI] 20.0-20.9, adult
CPT/HCPCS: 31500; 32551; 36415; 36600; 51702; 70450; 71045; 71250; 74176; 76705; 80048; 80053; 80074; 80202; 80307; 81001; 82150; 82378; 82550; 82805; 82962; 83036; 83605; 83690; 83735; 83880; 84132; 84443; 84484; 85007; 85014; 85018; 85025; 85027; 85045; 85379; 85610; 85652; 85730; 86141; 86850; 86900; 86901; 86920; 87040; 87070; 87077; 87081; 87086; 87088; 87186; 87205; 92950; 93005; 93306; 93926; 94002; 94003; 94640; 94761; 95819; 99291; C9113; G0378; J0153; J1815; J2248; J2250; J2543; J3430; J3480; J7060